=== PATIENT | male | born 1970 | race Caucasian/White ===

== ENCOUNTER 2019-07-17 21:38 | Inpatient (IN) | payer MEDICARE, MEDICAID ==
--- NOTE | 2019-07-17 22:09 | ED ---
Psych HPI - General Chief Complaint: Psychiatric Symptoms Stated Complaint: Mental Health Time Seen by Provider: 07/17/19 21:42 Source: patient Mode of arrival: EMS - History of Present Illness Initial Comments: This patient is a 49-year-old man who presents to be evaluated for having homicidal thoughts and suicidal thoughts. The patient states that he has had some long-standing issues with his mother, but over the past couple of months states he has had thoughts of killing her and then himself afterward. He states he had reached out to EMS and police but they didn't provide any help so he presents here. Patient had history of treatment for schizophrenia many years ago and then was briefly on antidepressant but states that he has not had any medication or treatment for many years now. MD Complaint: suicidal ideation, feels depressed -: month(s) Associated Psychiatric Symptoms: suicidal ideation, homicidal ideation Quality: changing over time Improves With: none Worsens With: none Associated Symptoms: denies other symptoms - Related Data Home Medications Medication Instructions Recorded Confirmed Levothyroxine Sodium [Synthroid] 175 mcg PO DAILY 03/11/16 07/17/19 Acetaminophen with Codeine 1 tab PO Q6H PRN 07/17/19 07/17/19 [Tylenol w/codeine #3] Atorvastatin [Lipitor] 20 mg PO HS 07/17/19 07/17/19 Cholecalciferol [Vitamin D3 (25 5,000 unit PO DAILY 07/17/19 07/17/19 Mcg = 1000 Iu)] Clopidogrel Bisulfate [Plavix] 75 mg PO DAILY 07/17/19 07/17/19 Ferrous Sulfate 220 mg PO BID 07/17/19 07/17/19 Folic Acid 1 mg PO DAILY 07/17/19 07/17/19 INSULIN ASPART (NovoLOG) [NovoLOG 2 - 8 unit SQ AC-TID 07/17/19 07/17/19 (formulary)] INSULIN ASPART (NovoLOG) [NovoLOG See Protocol SQ ACHS 07/17/19 07/17/19 (formulary)] Insulin Glargine [Lantus] 20 unit SQ HS 07/17/19 07/17/19 Allergies Allergy/AdvReac Type Severity Reaction Status Date / Time benztropine [From Cogentin] Allergy Unknown Verified 07/17/19 22:07 No Known Drug Allergies Allergy Unknown Verified 07/17/19 22:07 SODIUM CHANNEL BLOCKERS AdvReac Severe Unknown Uncoded 03/11/16 20:41 Review of Systems ROS Statement: Those systems with pertinent positive or pertinent negative responses have been documented in the HPI. ROS Other: All systems not noted in ROS Statement are negative. Constitutional: Denies: fever, weakness Eyes: Denies: vision change Respiratory: Denies: cough, dyspnea Cardiovascular: Denies: chest pain, syncope Gastrointestinal: Denies: abdominal pain, vomiting, diarrhea Genitourinary: Denies: dysuria, hematuria Musculoskeletal: Denies: back pain Skin: Denies: rash Neurological: Denies: headache Psychiatric: Reports: depression, homicidal thoughts, suicidal thoughts. De nies: auditory hallucinations, visual hallucinations Past Medical History Past Medical History: COPD, Diabetes Mellitus, Thyroid Disorder Additional Past Medical History / Comment(s): fibromyalgia, peripheral neuropathy. schizo parnoid, manic depressive. History of Any Multi-Drug Resistant Organisms: None Reported Past Surgical History: Hernia Repair Past Anesthesia/Blood Transfusion Reactions: No Reported Reaction Past Psychological History: Depression, Schizophrenia Smoking Status: Current every day smoker Past Alcohol Use History: Occasional Past Drug Use History: None Reported - Past Family History Mother Family Medical History: No Reported History (Colitis), Unable to Obtain Father Family Medical History: Diabetes Mellitus Brother(s) Family Medical History: No Reported History (Mental retarded patient) Daughter(s) Family Medical History: No Reported History General Exam Limitations: no limitations General appearance: alert, in no apparent distress Head exam: Present: atraumatic, normocephalic Eye exam: Present: normal appearance. Absent: scleral icterus, conjunctival injection ENT exam: Present: normal oropharynx Neck exam: Present: normal inspection Respiratory exam: Present: normal lung sounds bilaterally. Absent: respiratory distress, wheezes, rales, rhonchi, stridor Cardiovascular Exam: Present: regular rate, normal rhythm, normal heart sounds. Absent: systolic murmur, diastolic murmur, rubs, gallop GI/Abdominal exam: Present: soft. Absent: distended, tenderness, guarding, rebound Back exam: Present: normal inspection Neurological exam: Present: alert, oriented X3 Psychiatric exam: Present: depressed, homicidal ideation, suicidal ideation. Absent: agitated, anxious, flat affect, manic Skin exam: Present: warm, dry, intact, normal color. Absent: rash Course Vital Signs 07/17/19 21:42 Temperature 97.6 F Pulse Rate 82 Respiratory 18 Rate Blood Pressure 117/74 O2 Sat by Pulse 99 Oximetry Medical Decision Making - Lab Data Result diagrams: 07/19/19 07:39 07/21/19 09:05 Lab Results 07/18/19 Range/Units 00:09 Urine Opiates Screen Not Detected (NotDetected) Ur Oxycodone Screen Not Detected (NotDetected) Urine Methadone Screen Not Detected (NotDetected) Ur Propoxyphene Screen Not Detected (NotDetected) Ur Barbiturates Screen Not Detected (NotDetected) U Tricyclic Antidepress Not Detected (NotDetected) Ur Phencyclidine Scrn Not Detected (NotDetected) Ur Amphetamines Screen Not Detected (NotDetected) U Methamphetamines Scrn Not Detected (NotDetected) U Benzodiazepines Scrn Not Detected (NotDetected) Urine Cocaine Screen Not Detected (NotDetected) U Marijuana (THC) Screen Not Detected (NotDetected) Disposition Clinical Impression: Mood disorder Disposition: ADMITTED IP TO THIS [facility] Condition: Fair
[2019-07-18 00:35] LABS: Amphetamine Screen,Urine Not Detected (NotDetected); Barbiturate Screen,Urine Not Detected (NotDetected); Benzodiazepines Screen,Urine Not Detected (NotDetected); Cocaine Screen,Urine Not Detected (NotDetected); Methadone Screen, Urine Not Detected (NotDetected); Opiate Screen,Urine Not Detected (NotDetected); Oxycodone Screen, Urine Not Detected (NotDetected); Phencyclidine Screen,Urine Not Detected (NotDetected); Tricyclic Antidepressant,Urine Not Detected (NotDetected); Urn Cannabinoid Scrn Not Detected (NotDetected)
[2019-07-18] MEDS ORDERED: MAGNESIUM HYDROXIDE 2,400 MG/10 ML CUP PO PRN (03:56)
[2019-07-18] MEDS: LEVOTHYROXINE 50 MCG TAB PO SCH (06:43)
[2019-07-18 07:49] LABS: Glucose,Whole Blood 378 mg/dL (75-99)
[2019-07-18] MEDS ORDERED: FERROUS SULFATE 220 MG PO SCH (09:00)
[2019-07-18] MEDS: NICOTINE 14MG/24HR PATCH TRANSDERM SCH (09:15)
[2019-07-18] MEDS: CHOLECALCIFEROL 1,000 UNIT TAB PO SCH (09:15)
[2019-07-18] MEDS: FOLIC ACID 1 MG TAB PO SCH (09:16)
[2019-07-18] MEDS: INSULIN ASPART (NovoLOG) 100 UNIT/ML VIAL SQ SCH ×5 (09:17→20:52)
[2019-07-18] MEDS: CLOPIDOGREL 75 MG TAB PO SCH (10:05)
[2019-07-18 12:47] LABS: Glucose,Whole Blood 261 mg/dL (75-99)
--- NOTE | 2019-07-18 16:13 | P.HP ---
Psychiatric H&P - . H&P Date: 07/18/19 History & Physical: Allergies Allergy/AdvReac Type Severity Reaction Status Date / Time benztropine From Cogentin Allergy Unknown Verified 07/17/19 22:07 No Known Drug Allergies Allergy Unknown Verified 07/17/19 22:07 SODIUM CHANNEL BLOCKERS AdvReac Severe Unknown Uncoded 03/11/16 20:41 Vital Signs Temp 98.0 F 07/18/19 03:21 Pulse 78 07/18/19 03:21 Resp 18 07/18/19 03:21 BP 102/69 07/18/19 03:21 Pulse Ox 98 07/18/19 03:21 Intake & Output 07/17/19 07/18/19 07/18/19 18:59 06:59 18:59 Weight 81.647 kg Laboratory Last Values POC Glucose (mg/dL) 378 mg/dL (75-99) H 07/18/19 07:47 POC Glu [employer] Program Director ID Corinne Simpson 07/18/19 07:47 Urine Opiates Screen Not Detected (NotDetected) 07/18/19 00:09 Ur Oxycodone Screen Not Detected (NotDetected) 07/18/19 00:09 Urine Methadone Screen Not Detected (NotDetected) 07/18/19 00:09 Ur Propoxyphene Screen Not Detected (NotDetected) 07/18/19 00:09 Ur Barbiturates Screen Not Detected (NotDetected) 07/18/19 00:09 U Tricyclic Antidepress Not Detected (NotDetected) 07/18/19 00:09 Ur Phencyclidine Scrn Not Detected (NotDetected) 07/18/19 00:09 Ur Amphetamines Screen Not Detected (NotDetected) 07/18/19 00:09 U Methamphetamines Scrn Not Detected (NotDetected) 07/18/19 00:09 U Benzodiazepines Scrn Not Detected (NotDetected) 07/18/19 00:09 Urine Cocaine Screen Not Detected (NotDetected) 07/18/19 00:09 U Marijuana (THC) Screen Not Detected (NotDetected) 07/18/19 00:09 07/18/19 12:44 IDENTIFYING DATA: Patient is a 49-year-old male with a history of depression who currently lives with his dad brother and mother in a house is and has 1 daughter and collects SSD. HPI: Patient presented to the hospital via EMS after posting on Facebook different messages about wanting to end his life, stating that it was a "cry for help. Patient was endorsing depression with homicidal and suicidal ideations in the ER and was admitted to the mental health unit for treatment. Patient claims that he has been having long-standing problems with his mother and states that they do not get along. He claims that he has been feeling homicidal towards his mother for approximately 2 months now. He claims that he had thoughts of jumping out of his chair and strangling her. Patient claims that he has been off medications for years and endorses feeling "edgy" lately and it's mainly related to feelings towards his mother. He claims that his mother has "control issues" and has been taking things out on him which are not his fault. Patient was guarded about most of the details about their arguments however did state that he has no outlet for someone to talk to. He claimed that he did call 911 for help however he states that he did not receive any. She endorsed being in a "swingy mood" and admitted to anxiety and poor sleep and concentration. Patient admitted to having suicidal thoughts however are passive with no plan and admits to having still homicidal thoughts towards his mother wanting to strangle her. At this time patient denies any auditory or visual hallucinations. Patient denies any flight of ideas racing thoughts and increased in goal directed behavior. Patient admits to using cigarettes approximately 1.5 packs per day. He denies using any drugs currently and states that he quit using heroin and cocaine and cannabis over a year ago. He denies using alcohol. PAST PSYCHIATRIC HISTORY: Patient states that he has a history of depression and stopped seeing [facility] when he was 18 years old as he claims that he was dropped from their services. Patient also admitted to previously being hospitalized at the on the mental health unit in 1993. Patient admitted to an overdose attempt in 1993 PMH: COPD, diabetes mellitus, thyroid disease, fibromyalgia ALLERGIES: as per EMR CHEMICAL DEPENDENCY HISTORY: as per HPI FAMILY PSYCHIATRIC/SUBSTANCE USE HISTORY: States that his mother had some form of mental illness, his uncle has schizophrenia. SOCIAL HISTORY: States that he was born and raised in [place] [facility] and completed high school. He states that he has one daughter is currently and lives in a house with his father mother and brother. Patient admitted to being in group home once in the past for destruction of private property. MENTAL STATUS EXAM: General Appearance: Patient appears to be older than stated age is alert, directable, and guarded. Poor hygiene and poor grooming. Fair eye contact. Behavior: Patient is calmly seated without any agitated behavior. Patient is seated in a wheelchair. Speech: Patient's speech is fluent and nonpressured. Soft tone Mood/Affect: Patient reports their mood is "swingy mood", affect is congruent and constricted. Suicidality/Homicidality: Admits to homicidal and suicidal ideations as per HPI. Perceptions: Patient denies any auditory or visual hallucinations. Though content/process: There is no evidence of any delusional thought content and thought process is tangential/circumstantial. Memory and concentration: AOX3, grossly intact for the purposes of this session. Can spell "WORLD" backwards Judgment and insight: poor/impulsive. STRENGTHS/WEAKNESSES: strength is that patient is resilient, weaknesses the patient has poor insight and judgment. INTELLECT: average IMPRESSIONS: Depressive disorder unspecified, rule out bipolar depression Anxiety disorder Nicotine dependence PLAN: -Patient is admitted under voluntary status to MHU for stabilization of p sychiatric symptoms and safety. Patient signed adult voluntary form and medication consent and is placed in patient's chart. -Medications : Will start patient on Lamictal 25 mg twice a day for mood st abilization/depression, we'll start trazodone 50 mg daily at bedtime for insomnia/mood. Will start patient on Vistaril 25 mg every 6 hours when necessary for anxiety. -Ativan PRN for agitation/aggression -Patient was informed of the risks, benefits and side effects of the medication and patient verbally consented to taking the medications. Patient signed med consent form and was placed in chart. -NRT - nicotine patch -SW on board for discharge planning. Social work to reach out to mother for duty to warn prior to patient being discharged. 07/18/19 16:00 07/18/19 16:11
[2019-07-18] MEDS ORDERED: INSULIN ASPART (NovoLOG) 100 UNIT/ML VIAL SQ SCH ×2 (17:30)
[2019-07-18 17:50] LABS: Glucose,Whole Blood 293 mg/dL (75-99)
[2019-07-18 20:10] LABS: Glucose,Whole Blood 398 mg/dL (75-99)
[2019-07-18] MEDS ORDERED: traZODone HCL 50 MG TAB PO SCH (21:00)
[2019-07-18] MEDS ORDERED: INSULIN DETEMIR (LEVEMIR) 100 UNIT/ML SYR SQ SCH (21:00)
[2019-07-18] MEDS: lamoTRIgine 25 MG TAB PO SCH (21:21)
[2019-07-18] MEDS: ATORVASTATIN 20 MG TAB PO SCH (21:21)
[2019-07-18] MEDS: MAG HYDROX/AL HYDROX/SIMETH 30 ML CUP PO PRN (21:22)
--- NOTE | 2019-07-18 22:07 | CONS ---
CONSULTATION DATE OF SERVICE: 07/18/2019 REASON FOR CONSULTATION: Advice regarding diabetes mellitus and other multiple medical issues, requested by Psychiatry. HISTORY OF PRESENT ILLNESS: This 49-year-old gentleman with a past medical history of multiple medical problems, including COPD, diabetes mellitus, type 2, history hypothyroidism, fibromyalgia, peripheral neuropathy, schizoaffective paranoid disorder, manic depressive disorder, being followed by Dr. Interiano in the outpatient setting, apparently was evaluated in [facility] recently. The official reports are not available, but as per the patient, the patient apparently had a cardiac cath that showed 3-vessel coronary artery disease and the patient is awaiting CABG, but the hemoglobin A1c has to be less than 6.5, according to the doctors over there prior to surgery. Currently the patient presented with suicidal, homicidal ideations. His blood sugar was found to be more than 380 and the patient was admitted for further evaluation and treatment. An element of noncompliance is also suspected at this time. There is no history of any fever, rigor or chills. No history of headache, loss of consciousness, seizures. PAST MEDICAL HISTORY: 1. COPD. 2. Diabetes mellitus. 3. History of recent cardiac workup. 4. Fibromyalgia. 5. Depression. HOME MEDICATIONS: 1. NovoLog before meals and at bedtime. 2. Lantus 20 units subcutaneously at bedtime. 3. Lipitor 20 mg at bedtime. 4. Tylenol No.3. 5. Folic acid 1 mg p.o. daily. 6. Plavix 75 mg p.o. daily. 7. Vitamin D3 5000 daily. 8. Synthroid 175 mcg p.o. daily. 9. Iron sulfate 220 mcg p.o. daily. ALLERGIES: COGENTIN and SODIUM CHANNEL BLOCKERS. FAMILY HISTORY: Unknown. SOCIAL HISTORY: History of smoking. History of alcohol. REVIEW OF SYSTEMS: ENT: Diminished hearing. Diminished vision. CARDIOVASCULAR SYSTEM: As mentioned earlier. RESPIRATORY SYSTEM: No cough, hemoptysis. GI: No nausea, vomiting. : No dysuria or retention. NERVOUS SYSTEM: No numbness, weakness. ALLERGY/IMMUNOLOGY: No asthma, hayfever. MUSCULOSKELETAL: As mentioned earlier. HEMATOLOGY/ONCOLOGY: No history of anemia. ENDOCRINE: As mentioned earlier. Hypothyroidism. CONSTITUTIONAL: As mentioned earlier. DERMATOLOGY: Negative. RHEUMATOLOGY: Negative. PSYCHIATRY: As mentioned earlier. PHYSICAL EXAMINATION: Patient alert and oriented x3. Pulse 78, blood pressure 102/69, respiration 18, temperature 98 degrees, pulse ox 98% on room air. HEENT: Conjunctivae normal. Oral mucosa moist. NECK: No jugular venous distention. No carotid bruit. No lymph node enlargement. CARDIOVASCULAR SYSTEM: S1, S2 muffled. No S3. No S4. RESPIRATORY SYSTEM: Breath sounds diminished at the bases. No rhonchi. No crackles. ABDOMEN: Soft, non-tender. No mass palpable. LEGS: No edema. No swelling. NERVOUS SYSTEM: Higher functions as mentioned earlier. Moves all 4 limbs. No focal motor or sensory deficit. LYMPHATICS: No lymph node palpable in neck, axillae or groin. SKIN: No ulcer, rash, bleeding. JOINTS: No active deforming arthropathy. LABS: Labs at this time show glucose 378, 261. ASSESSMENT: 1. Diabetes mellitus, type 2, uncontrolled, with hyperglycemia. 2. History of recent coronary artery disease. Patient being worked up for CABG. 3. Chronic obstructive pulmonary disease. 4. Diabetes mellitus, type 2. 5. Hypothyroidism. 6. Fibromyalgia. 7. Peripheral neuropathy. 8. Schizoaffective disorder. 9. History of MDP. 10.History of nicotine dependence, continued and ongoing. 11.FULL CODE. RECOMMENDATIONS AND DISCUSSION: In this 49-year-old gentleman who presented with multiple complex medical issues, we will monitor the patient closely, continue the current medications, continue with symptomatic treatment. I recommend obtaining the paperwork from Dr. Interiano's office as well as from [place] regarding the acuity of the cardiac disease. But in any case the patient is currently asymptomatic. I recommend to continue the rest of the medications, including antiplatelets. I would also resume the dose of Lantus and 2 to 8 units before meals t.i.d. plus coverage as well. Otherwise, we will closely monitor. Smoking cessation has been advised. The patient may be asked to follow up with his primary physician closely after discharge. Thank you, Dr. Camp, for letting us participate in the care of this patient. MMODL / IJN: [id number] /
[2019-07-19 01:59] LABS: Glucose,Whole Blood 211 mg/dL (75-99)
[2019-07-19] MEDS: MAG HYDROX/AL HYDROX/SIMETH 30 ML CUP PO PRN (02:25)
[2019-07-19 08:06] LABS: Glucose,Whole Blood 200 mg/dL (75-99)
[2019-07-19] MEDS: INSULIN ASPART (NovoLOG) 100 UNIT/ML VIAL SQ SCH ×7 (08:12→20:47)
[2019-07-19 08:13] LABS: Basophils % (A) 0 %; Eosinophils # (A) 0.4 k/uL (0-0.7); Eosinophils % (A) 4 %; HCT 34.7 % (39.0-53.0); HGB 11.4 gm/dL (13.0-17.5); Lymphocytes % (A) 24 %; MCH 30.2 pg (25.0-35.0); MCHC 32.8 g/dL (31.0-37.0); MCV 92.1 fL (80.0-100.0); Mean Platelet Volume 7.4; Monocytes # (A) 0.6 k/uL (0-1.0); Monocytes % (A) 7 %; Neutrophils # (A) 5.1 k/uL (1.3-7.7); Neutrophils % (A) 62 %; Platelet Count 144 k/uL (150-450); RBC 3.77 m/uL (4.30-5.90); RDW 14.3 % (11.5-15.5); WBC 8.3 k/uL (3.8-10.6)
[2019-07-19 08:14] LABS: Bilirubin, Delta 0.1 mg/dL (0.0-0.2); Bilirubin,Unconjugated 0.3 mg/dL (0.0-1.1); Calcium 9.6 mg/dL (8.4-10.2); Potassium 5.7 mmol/L (3.5-5.1); Total Bilirubin 0.4 mg/dL (0.2-1.3)
[2019-07-19] MEDS: LEVOTHYROXINE 50 MCG TAB PO SCH (08:15)
[2019-07-19] MEDS: NICOTINE 14MG/24HR PATCH TRANSDERM SCH (09:16)
[2019-07-19] MEDS: CHOLECALCIFEROL 1,000 UNIT TAB PO SCH (09:16)
[2019-07-19] MEDS: FOLIC ACID 1 MG TAB PO SCH (09:16)
[2019-07-19] MEDS: CLOPIDOGREL 75 MG TAB PO SCH (09:17)
[2019-07-19] MEDS: lamoTRIgine 25 MG TAB PO SCH ×2 (09:17→20:50)
[2019-07-19] MEDS: ACETAMINOPHEN TAB 325 MG TAB PO PRN (09:18)
--- NOTE | 2019-07-19 09:47 | P.PN ---
Progress Note - Text Progress Note Date: 07/19/19 Interval History: Patient was seen in his wheelchair wandering the hallways and was directable and agreeable to be interviewed in the office. Patient continues to have a soft- spoken voice however is clear and appear to speak more about his stressors at home. Patient also spoke about having financial stressors which have been preventing him from moving out of the house. Patient spoke about wanting to be in his own apartment and have his freedom. Patient states that his mood has improved mildly and feels less "edgy" compared to yesterday. Patient states that he is making some new friends on the unit which have been helping him push his wheelchair around. He states that he slapped for approximately 3-4 hours last night and has been awake since 3 AM and was requesting an increase in his trazodone. He admits to fair energy and has been attempting to go to groups. At this time patient continues to have passive suicidal ideations along with passive homicidal ideations towards his mother. Patient denies any auditory, visual hallucinations and denies any paranoia or delusions. Patient denies any side effects from the medications and has been compliant with meds. Mental Status Exam: General Appearance: Patient appears to be older than stated age is alert, directable, and attempts to cooperate. Poor hygiene and poor grooming. Fair eye contact. Behavior: Patient is calmly seated without any agitated behavior. Patient is seated in a wheelchair. Speech: Patient's speech is fluent and nonpressured. Soft tone Mood/Affect: Patient reports their mood is improving mildly, affect is congruent and constricted. Suicidality/Homicidality: Admits to homicidal and suicidal ideations with no plan or intent. Perceptions: Patient denies any auditory or visual hallucinations. Though content/process: There is no evidence of any delusional thought content and thought process is tangential/circumstantial. Memory and concentration: AOX3, grossly intact for the purposes of this session. Judgment and insight: poor, improving mildly Assessment Depressive disorder unspecified, rule out bipolar depression Anxiety disorder Nicotine dependence Plan: -Patient continues to meet criteria for inpatient psychiatric admission for symptom stabilization and safety. Patient has signed adult voluntary form and medication consent and was placed in patient's chart. -Medications: We'll continue with Lamictal 25 mg twice a day for mood stabilization/depression. We'll increase trazodone to 100 mg nightly for insomnia/mood. Continue with Vistaril 25 mg every 6 hours when necessary for anxiety. -When necessary Ativan for agitation/aggression. -NRT - nicotine patch -SW on board for discharge planning. Social work to reach out to mother for duty to warn prior to patient being discharged.
[2019-07-19 12:43] LABS: Glucose,Whole Blood 198 mg/dL (75-99)
[2019-07-19] MEDS ORDERED: SODIUM CHLORIDE 0.9% 1,000 ML IV ONE (15:24)
[2019-07-19] MEDS ORDERED: SODIUM POLYSTYRENE SULFONATE 15 GM/60 ML BOTTLE PO STA (15:26)
[2019-07-19] MEDS ORDERED: SODIUM CHLORIDE 0.9% 1,000 ML IV SCH (15:30)
--- NOTE | 2019-07-19 15:30 | P.PN ---
Subjective 49-year-old that was admitted to psychiatric floor, as asked to reevaluate the patient today because of lab abnormalities including elevated potassium elevated serum creatinine and this elevated BNP. Patient denied any diarrhea nausea vomiting I reviewed his medications none of them can cause a will cause acute renal failure and hyperkalemia. Patient will be given a bolus of IV fluid today after that we'll the use 100 mL of normal saline and repeat basic metabolic profile tomorrow. I'm expecting potassium to come down with IV fluids patient will also be given capsulate for hyperkalemia. Constitutional: Denied any fatigue denied any fever. Cardio vascular: denied any chest pain, palpitations Gastrointestinal denied any nausea vomiting Pulmonary: Denied any shortness of breath cough Neurologic denied any new focal deficits All inpatient medications were reviewed and appropriate changes in these medications as dictated in the interval history and assessment and plan. Objective - Vital Signs Vital signs: Vital Signs Temp 98.0 F 07/18/19 03:21 Pulse 70 07/19/19 07:08 Resp 14 07/19/19 07:08 BP 128/73 07/19/19 07:08 Pulse Ox 98 07/18/19 03:21 - Exam PHYSICAL EXAMINATION: GENERAL: The patient is alert and oriented x3, not in any acute distress. Well developed, well nourished. HEENT: Pupils are round and equally reacting to light. EOMI. No scleral icterus. No conjunctival pallor. Normocephalic, atraumatic. No pharyngeal erythema. No thyromegaly. CARDIOVASCULAR: S1 and S2 present. No murmurs, rubs, or gallops. PULMONARY: Chest is clear to auscultation, no wheezing or crackles. ABDOMEN: Soft, nontender, nondistended, normoactive bowel sounds. No palpable organomegaly. MUSCULOSKELETAL: No joint swelling or deformity. EXTREMITIES: No cyanosis, clubbing, or pedal edema. NEUROLOGICAL: Gross neurological examination did not reveal any focal deficits. SKIN: No rashes. - Labs CBC & Chem 7: 07/19/19 07:39 07/19/19 07:39 Labs: Abnormal Lab Results - Last 24 Hours (Table) 07/18/19 07/18/19 07/19/19 Range/Units 17:48 20:06 01:55 RBC (4.30-5.90) m/uL Hgb (13.0-17.5) gm/dL Hct (39.0-53.0) % Plt Count (150-450) k/uL Potassium (3.5-5.1) mmol/L BUN (9-20) mg/dL Creatinine (0.66-1.25) mg/dL Glucose (74-99) mg/dL POC Glucose (mg/dL) 293 H 398 H 211 H (75-99) mg/dL Alkaline Phosphatase (38-126) U/L HDL Cholesterol (40-60) mg/dL 07/19/19 07/19/19 07/19/19 Range/Units 07:39 07:39 08:04 RBC 3.77 L (4.30-5.90) m/uL Hgb 11.4 L (13.0-17.5) gm/dL Hct 34.7 L (39.0-53.0) % Plt Count 144 L (150-450) k/uL Potassium 5.7 H (3.5-5.1) mmol/L BUN 52 H (9-20) mg/dL Creatinine 1.40 H (0.66-1.25) mg/dL Glucose 172 H (74-99) mg/dL POC Glucose (mg/dL) 200 H (75-99) mg/dL Alkaline Phosphatase 155 H (38-126) U/L HDL Cholesterol 31 L (40-60) mg/dL 07/19/19 Range/Units 12:42 RBC (4.30-5.90) m/uL Hgb (13.0-17.5) gm/dL Hct (39.0-53.0) % Plt Count (150-450) k/uL Potassium (3.5-5.1) mmol/L BUN (9-20) mg/dL Creatinine (0.66-1.25) mg/dL Glucose (74-99) mg/dL POC Glucose (mg/dL) 198 H (75-99) mg/dL Alkaline Phosphatase (38-126) U/L HDL Cholesterol (40-60) mg/dL Assessment and Plan Plan: -Hyperkalemia secondary to acute renal failure which is again secondary to prerenal azotemia patient was started on IV fluids and capsulate as mentioned above. Patient doesn't have any history of congestive heart failure supposed to undergo coronary artery bypass grafting as an outpatient -Acute renal failure. His demand, depletion secondary to prove that oral intake -Type 2 diabetes mellitus fairly well controlled blood sugars For rest of the medical problems please refer to dictation of consultation from Dr. Hale yesterday
[2019-07-19 17:38] LABS: Hemoglobin A1C 8.9 % (4.0-6.0)
[2019-07-19 18:03] LABS: Glucose,Whole Blood 186 mg/dL (75-99)
[2019-07-19 18:03] LABS: Glucose,Whole Blood 252 mg/dL (75-99)
[2019-07-19 20:34] LABS: Glucose,Whole Blood 264 mg/dL (75-99)
[2019-07-19] MEDS: INSULIN DETEMIR (LEVEMIR) 100 UNIT/ML SYR SQ SCH (20:50)
[2019-07-19] MEDS: ATORVASTATIN 20 MG TAB PO SCH (20:50)
[2019-07-19] MEDS: traZODone HCL 100 MG TAB PO SCH (20:51)
[2019-07-20 02:21] LABS: Glucose,Whole Blood 124 mg/dL (75-99)
[2019-07-20 05:03] LABS: Glucose,Whole Blood 106 mg/dL (75-99)
[2019-07-20] MEDS: LEVOTHYROXINE 50 MCG TAB PO SCH (05:50)
[2019-07-20] MEDS ORDERED: SODIUM CHLORIDE 0.9% 1,000 ML IV ONE (06:00)
[2019-07-20 07:59] LABS: Glucose,Whole Blood 147 mg/dL (75-99)
[2019-07-20] MEDS: CHOLECALCIFEROL 1,000 UNIT TAB PO SCH (08:43)
[2019-07-20] MEDS: NICOTINE 14MG/24HR PATCH TRANSDERM SCH (08:43)
[2019-07-20] MEDS: FOLIC ACID 1 MG TAB PO SCH (08:44)
[2019-07-20] MEDS: lamoTRIgine 25 MG TAB PO SCH ×2 (08:44→20:49)
[2019-07-20] MEDS: INSULIN ASPART (NovoLOG) 100 UNIT/ML VIAL SQ SCH ×7 (08:47→20:40)
[2019-07-20] MEDS: CLOPIDOGREL 75 MG TAB PO SCH (09:26)
[2019-07-20 09:56] LABS: Potassium 4.7 mmol/L (3.5-5.1)
--- NOTE | 2019-07-20 10:25 | P.PN ---
Progress Note - Text Progress Note Date: 07/20/19 Interval History: Patient was seen in his wheelchair wandering the hallways and was directable and agreeable to be interviewed in the office. Patient states that he is starting to form more bonds with other patients on the unit and claims that one of his favorite patients who he likes to talk to we'll probably get discharged today which she is upset about. Patient spoke about continuing to try to participate in groups and gained benefit from being here in the hospital. Patient continues to speak about the stressors between him and his mother and how he still has homicidal ideations towards her however are improving. Patient states that his mood is improving mildly and feels less irritable. Patient claims that his sleep has been mildly improving on the increase in trazodone however claims that he was woken up by staff last night and found it difficult to go back to sleep. He admits to fair energy and has been attempting to go to groups. Patient denies any auditory, visual hallucinations and denies any paranoia or delusions. Patient denies any side effects from the medications and has been compliant with meds. Patient denies any rash on his skin and claims that he's been checking his skin daily for it. Mental Status Exam: General Appearance: Patient appears to be older than stated age is alert, directable, and attempts to cooperate. Improving hygiene and poor grooming. Fair eye contact. Behavior: Patient is calmly seated without any agitated behavior. Patient is seated in a wheelchair. Speech: Patient's speech is fluent and nonpressured. Soft tone Mood/Affect: Patient reports their mood is improving mildly, affect is congruent and constricted. Suicidality/Homicidality: Admits to homicidal ideations with no plan or intent towards his mother. Perceptions: Patient denies any auditory or visual hallucinations. Though content/process: There is no evidence of any delusional thought content and thought process is tangential/circumstantial. Memory and concentration: AOX3, grossly intact for the purposes of this session. Judgment and insight: poor, improving mildly Assessment Depressive disorder unspecified, rule out bipolar depression Anxiety disorder Nicotine dependence Plan: -Patient continues to meet criteria for inpatient psychiatric admission for symptom stabilization and safety. Patient has signed adult voluntary form and medication consent and was placed in patient's chart. -Medications: Increased Lamictal 50 mg twice a day for mood sta bilization/depression. We'll continue with trazodone to 100 mg nightly for insomnia/mood. Continue with Vistaril 25 mg every 6 hours when necessary for anxiety. -When necessary Ativan for agitation/aggression. -NRT - nicotine patch -SW on board for discharge planning. Social work to reach out to mother for duty to warn prior to patient being discharged.
[2019-07-20 12:41] LABS: Glucose,Whole Blood 175 mg/dL (75-99)
[2019-07-20 17:51] LABS: Glucose,Whole Blood 91 mg/dL (75-99)
[2019-07-20 20:14] LABS: Glucose,Whole Blood 157 mg/dL (75-99)
[2019-07-20] MEDS: INSULIN DETEMIR (LEVEMIR) 100 UNIT/ML SYR SQ SCH (20:39)
[2019-07-20] MEDS: ACETAMINOPHEN TAB 325 MG TAB PO PRN (20:47)
[2019-07-20] MEDS: hydrOXYzine PAMOATE 25 MG CAP PO PRN (20:47)
[2019-07-20] MEDS: traZODone HCL 100 MG TAB PO SCH (20:49)
[2019-07-20] MEDS: ATORVASTATIN 20 MG TAB PO SCH (20:49)
[2019-07-20 22:03] LABS: Glucose,Whole Blood 132 mg/dL (75-99)
[2019-07-21] MEDS: LEVOTHYROXINE 50 MCG TAB PO SCH (06:57)
[2019-07-21 07:54] LABS: Glucose,Whole Blood 50 mg/dL (75-99)
[2019-07-21 08:29] LABS: Glucose,Whole Blood 50 mg/dL (75-99)
[2019-07-21 08:49] LABS: Glucose,Whole Blood 47 mg/dL (75-99)
[2019-07-21] MEDS ORDERED: DEXTROSE 4 GM CHEWABLE PO STA (09:07)
[2019-07-21 09:10] LABS: Glucose,Whole Blood 86 mg/dL (75-99)
[2019-07-21] MEDS: NICOTINE 14MG/24HR PATCH TRANSDERM SCH (09:39)
[2019-07-21] MEDS: CHOLECALCIFEROL 1,000 UNIT TAB PO SCH (09:39)
[2019-07-21] MEDS: CLOPIDOGREL 75 MG TAB PO SCH (09:40)
[2019-07-21] MEDS: lamoTRIgine 25 MG TAB PO SCH ×2 (09:40→21:38)
[2019-07-21] MEDS: FOLIC ACID 1 MG TAB PO SCH (09:40)
[2019-07-21] MEDS: INSULIN ASPART (NovoLOG) 100 UNIT/ML VIAL SQ SCH ×7 (09:42→20:03)
--- NOTE | 2019-07-21 11:21 | P.PN ---
Progress Note - Text Progress Note Date: 07/21/19 Interval History: Patient was seen in his wheelchair wandering the hallways and was directable and agreeable to be interviewed in the office. Patient states that he is not doing so well today as he claims that he's been trying to stick up for other patients on the unit at her being "bullied" by others and states that she's always tried to stand up to people. Patient spoke about how he would like to get his own room or apartment when he leaves the hospital and states that he does not want t o go back to his mother's house. Patient spoke about continuing to try to participate in groups and gained benefit from it. Patient continues to speak about the stressors between him and his mother and how he still has homicidal ideations towards her. Patient states that his mood is improving mildly and feels less irritable. Patient claims that his sleep has been improving however requests an increase in his trazodone once again. He admits to fair energy. Patient denies any auditory, visual hallucinations and denies any paranoia or delusions. Patient denies any side effects from the medications and has been compliant with meds. Patient denies any rash on his skin and claims that he's been checking his skin daily for it. Mental Status Exam: General Appearance: Patient appears to be older than stated age is alert, directable, and attempts to cooperate. Improving hygiene and poor grooming. Fair eye contact. Behavior: Patient is calmly seated without any agitated behavior. Patient is seated in a wheelchair. Speech: Patient's speech is fluent and nonpressured. Soft tone Mood/Affect: Patient reports their mood is improving mildly, affect is congruent and constricted. Suicidality/Homicidality: Admits to homicidal ideations with no plan or intent towards his mother. Denies any suicidal ideations. Perceptions: Patient denies any auditory or visual hallucinations. Though content/process: There is no evidence of any delusional thought content and thought process is tangential/circumstantial. Memory and concentration: AOX3, grossly intact for the purposes of this session. Judgment and insight: poor, improving mildly Assessment Depressive disorder unspecified, rule out bipolar depression Anxiety disorder Nicotine dependence Plan: -Patient continues to meet criteria for inpatient psychiatric admission for symptom stabilization and safety. Patient has signed adult voluntary form and medication consent and was placed in patient's chart. -Medications: Continue with Lamictal 50 mg twice a day for mood stabilization/depression. We'll increase trazodone 150 mg nightly for insomnia/mood. Continue with Vistaril 25 mg every 6 hours when necessary for anxiety. -When necessary Ativan for agitation/aggression. -NRT - nicotine patch -SW on board for discharge planning. Social work to reach out to mother for duty to warn prior to patient being discharged. Patient likely discharge in 2-3 days.
[2019-07-21 12:56] LABS: Glucose,Whole Blood 175 mg/dL (75-99)
[2019-07-21] MEDS: MAG HYDROX/AL HYDROX/SIMETH 30 ML CUP PO PRN (16:17)
[2019-07-21 17:27] LABS: Glucose,Whole Blood 213 mg/dL (75-99)
[2019-07-21 19:58] LABS: Glucose,Whole Blood 127 mg/dL (75-99)
[2019-07-21] MEDS: INSULIN DETEMIR (LEVEMIR) 100 UNIT/ML SYR SQ SCH (21:37)
[2019-07-21] MEDS: ATORVASTATIN 20 MG TAB PO SCH (21:39)
[2019-07-21] MEDS: traZODone HCL 50 MG TAB PO SCH (21:39)
[2019-07-22] MEDS: LEVOTHYROXINE 50 MCG TAB PO SCH (05:58)
[2019-07-22] MEDS: NICOTINE 14MG/24HR PATCH TRANSDERM SCH (07:40)
[2019-07-22] MEDS: FOLIC ACID 1 MG TAB PO SCH (07:41)
[2019-07-22] MEDS: CHOLECALCIFEROL 1,000 UNIT TAB PO SCH (07:41)
[2019-07-22] MEDS: lamoTRIgine 25 MG TAB PO SCH (07:41)
[2019-07-22] MEDS: CLOPIDOGREL 75 MG TAB PO SCH (07:41)
[2019-07-22 07:44] LABS: Glucose,Whole Blood 150 mg/dL (75-99)
[2019-07-22] MEDS: INSULIN ASPART (NovoLOG) 100 UNIT/ML VIAL SQ SCH ×7 (07:46→20:54)
[2019-07-22 12:41] LABS: Glucose,Whole Blood 148 mg/dL (75-99)
--- NOTE | 2019-07-22 12:41 | P.PN ---
Progress Note - Text Progress Note Date: 07/22/19 Interval History: Patient was seen in his wheelchair wandering the hallways and was directable and agreeable to be interviewed in the office. Patient continues to speak about another female on the unit who he is trying to stick up for an claims that he filed a complaint with the staff. Patient offered no other complaints and appeared to be more future oriented about his disposition. Patient stated that it started option for him to go back to his home and he is still having homicidal thoughts towards his mother. Patient claims that she would like to have a electric wheelchair to help him get around the town as he would like to stay in [place]. Patient spoke about continuing to try to participate in groups and gained benefit from it. He states that he is still feeling somewhat depressed and somewhat irritable and was requesting to have his Lamictal increased. Patient claims that his sleep has been improving. He admits to fair energy. Patient denies any auditory, visual hallucinations and denies any paranoia or delusions. Patient denies any side effects from the medications and has been compliant with meds. Patient denies any rash on his skin and claims that he's been checking his skin daily for it. Mental Status Exam: General Appearance: Patient appears to be older than stated age is alert, directable, and attempts to cooperate. Improving hygiene and poor grooming. Fair eye contact. Behavior: Patient is calmly seated without any agitated behavior. Patient is seated in a wheelchair. Speech: Patient's speech is fluent and nonpressured. Soft tone Mood/Affect: Patient reports their mood is improving mildly, affect is congruent and constricted. Suicidality/Homicidality: Admits to homicidal ideations with no plan or intent towards his mother. Denies any suicidal ideations. Perceptions: Patient denies any auditory or visual hallucinations. Though content/process: There is no evidence of any delusional thought content and thought process is tangential/circumstantial. Memory and concentration: AOX3, grossly intact for the purposes of this session. Judgment and insight: poor, improving mildly Assessment Depressive disorder unspecified, rule out bipolar depression Anxiety disorder Nicotine dependence Plan: -Patient continues to meet criteria for inpatient psychiatric admission for symptom stabilization and safety. Patient has signed adult voluntary form and medication consent and was placed in patient's chart. -Medications: Increased Lamictal 50 mg + 100mg daily for mood stabilization/depression. We'll continue with trazodone 150 mg nightly for insomnia/mood. Continue with Vistaril 25 mg every 6 hours when necessary for anxiety. -When necessary Ativan for agitation/aggression. -NRT - nicotine patch -SW on board for discharge planning. Social work to reach out to mother for duty to warn prior to patient being discharged. Patient likely discharge early next week. Patient will either be going to a room and board versus senior living.
[2019-07-22 17:35] LABS: Glucose,Whole Blood 163 mg/dL (75-99)
[2019-07-22] MEDS: traZODone HCL 50 MG TAB PO SCH (20:49)
[2019-07-22] MEDS: ATORVASTATIN 20 MG TAB PO SCH (20:49)
[2019-07-22] MEDS: INSULIN DETEMIR (LEVEMIR) 100 UNIT/ML SYR SQ SCH (20:50)
[2019-07-22] MEDS: lamoTRIgine 100 MG TAB PO SCH (20:50)
[2019-07-22 20:52] LABS: Glucose,Whole Blood 363 mg/dL (75-99)
[2019-07-23] MEDS: LEVOTHYROXINE 50 MCG TAB PO SCH (06:15)
[2019-07-23 07:36] LABS: Glucose,Whole Blood 153 mg/dL (75-99)
[2019-07-23] MEDS: NICOTINE 14MG/24HR PATCH TRANSDERM SCH (07:58)
[2019-07-23] MEDS: CLOPIDOGREL 75 MG TAB PO SCH (07:59)
[2019-07-23] MEDS: INSULIN ASPART (NovoLOG) 100 UNIT/ML VIAL SQ SCH ×7 (07:59→20:09)
[2019-07-23] MEDS: CHOLECALCIFEROL 1,000 UNIT TAB PO SCH (07:59)
[2019-07-23] MEDS: FOLIC ACID 1 MG TAB PO SCH (07:59)
[2019-07-23] MEDS: lamoTRIgine 25 MG TAB PO SCH (08:00)
[2019-07-23 12:33] LABS: Glucose,Whole Blood 261 mg/dL (75-99)
[2019-07-23 17:42] LABS: Glucose,Whole Blood 130 mg/dL (75-99)
--- NOTE | 2019-07-23 18:06 | P.PN ---
Progress Note - Text Progress Note Date: 07/23/19 IDENTIFICATION DATA: 49-year-old male admitted voluntarily to [facility] due with symptoms of depression and suicidal ideations INTERVAL HISTORY: He says his medications are keeping him mellowed. He reports being upset earlier about his peers getting into his face and not being able get shower when he asked. He stated he did not g to his groups today due to being upset and sat in his room to think it out. He reports feeling lot better after he took his shower. He reports waking up feeling tired and says his sleep is interrupted which has been like that for a long time. He reports taking all his medications. No side effects reported. MENTAL STATUS EXAMINATION: 49 year old male. AMBULATES IN WHEEL CHAIR. Appears stated age in fair grooming and hygiene. speech and thought process are slow and goal directed. mood is reported as better and affect constricted. denies current auditory hallucinations and visual hallucinations. Denies paranoid ideations. Denies current suicidal or homicidal ideations. She is alert and oriented x 4. Her insight and judgement are improving. Assessment Depressive disorder unspecified, rule out bipolar depression Anxiety disorder Nicotine dependence PLAN: Continue Lamictal 50 mg + 100mg daily for mood stabilization/depression. Will increase trazodone from 150 mg nightly to 200mg po qhs for insomnia Vistaril 25 mg every 6 hours when necessary for anxiety.
--- NOTE | 2019-07-23 18:39 | P.PN ---
Progress Note - Text Progress Note Date: 07/23/19 IDENTIFICATION DATA: 36 -year-old male admitted to [facility] voluntarily with symptoms of depression and suicidal ideations INTERVAL HISTORY: He reports feeling kind of low today stating his family is disappointed at him for what he had done prior to his admission. He stated he did not eat his dinner stating his stomach is upset. He reports good sleep but states he sweats a lot at night. He reports taking all his medications as prescribed and denies side effects. He claims his blood pressures are running low. MENTAL STATUS EXAMINATION: 36 year old male.. Appears stated age in fair grooming and hygiene. speech and thought process are goal directed. mood is sad and affect constricted. denies current auditory hallucinations and visual hallucinations. Denies paranoid ideations. Reports current suicidal with no plan. Denies homicidal ideations. She is alert and oriented x 4. Her insight and judgement are improving. Assessment Major depressive disorder, moderate-severe, recurrent Anxiety disorder unspecified Opiate use disorder, currently on replacement therapy Alcohol abuse PLAN: Continue Lexapro 20 mg nightly for mood/anxiety. Klonopin 0.5 mg twice a day when necessary for anxiety. Melatonin 5 mg nightly for sleep. Suboxone 8 mg/2 mg twice a day for opiate use disorder
[2019-07-23 20:04] LABS: Glucose,Whole Blood 206 mg/dL (75-99)
[2019-07-23] MEDS: lamoTRIgine 100 MG TAB PO SCH (20:43)
[2019-07-23] MEDS: ATORVASTATIN 20 MG TAB PO SCH (20:43)
[2019-07-23] MEDS: INSULIN DETEMIR (LEVEMIR) 100 UNIT/ML SYR SQ SCH (20:43)
[2019-07-23] MEDS: traZODone HCL 100 MG TAB PO SCH (20:44)
[2019-07-24] MEDS: LEVOTHYROXINE 50 MCG TAB PO SCH (06:10)
[2019-07-24 07:40] LABS: Glucose,Whole Blood 83 mg/dL (75-99)
[2019-07-24] MEDS: INSULIN ASPART (NovoLOG) 100 UNIT/ML VIAL SQ SCH ×7 (07:43→20:16)
[2019-07-24] MEDS: NICOTINE 14MG/24HR PATCH TRANSDERM SCH (08:26)
[2019-07-24] MEDS: FOLIC ACID 1 MG TAB PO SCH (08:26)
[2019-07-24] MEDS: CLOPIDOGREL 75 MG TAB PO SCH (08:26)
[2019-07-24] MEDS: lamoTRIgine 25 MG TAB PO SCH (08:27)
[2019-07-24] MEDS: CHOLECALCIFEROL 1,000 UNIT TAB PO SCH (08:27)
[2019-07-24 12:45] LABS: Glucose,Whole Blood 197 mg/dL (75-99)
--- NOTE | 2019-07-24 16:06 | P.PN ---
Progress Note - Text Progress Note Date: 07/24/19 IDENTIFICATION DATA: 49-year-old male admitted voluntarily to [facility] due with symptoms of depression and suicidal ideations INTERVAL HISTORY: He says he no longer feels suicidal and states he is planning to move out of [place]. He states every thing will be fine as long as he doesnt stay with his mother. He is concerned about changing his bank accounts from [place] to a bank near his future home, but doesnt know where he will be going to. He is currently waiting for social services manager to find him a place to live. He continues to report fragmented sleep. He reports good appetite. He is compliant with his medications and no side effects reported. MENTAL STATUS EXAMINATION: 49 year old male. AMBULATES IN WHEEL CHAIR. Appears stated age in fair grooming and hygiene. speech and thought process are goal directed. mood is reported as ok and affect constricted. denies current auditory hallucinations and visual hallucinations. Denies paranoid ideations. Denies current suicidal or homicidal ideations. he is alert and oriented x 4. Her insight and judgement are improving. Assessment Depressive disorder unspecified, rule out bipolar depression Anxiety disorder Nicotine dependence PLAN: Continue Lamictal 50 mg + 100mg daily for mood stabilization/depression. Trazodone 200mg po qhs for insomnia which can be increased further if he continues to have fragmented sleep Vistaril 25 mg every 6 hours when necessary for anxiety.
[2019-07-24] MEDS: hydrOXYzine PAMOATE 25 MG CAP PO PRN (17:02)
[2019-07-24 17:38] LABS: Glucose,Whole Blood 283 mg/dL (75-99)
[2019-07-24 20:14] LABS: Glucose,Whole Blood 149 mg/dL (75-99)
[2019-07-24] MEDS: INSULIN DETEMIR (LEVEMIR) 100 UNIT/ML SYR SQ SCH (20:16)
[2019-07-24] MEDS: ATORVASTATIN 20 MG TAB PO SCH (20:18)
[2019-07-24] MEDS: lamoTRIgine 100 MG TAB PO SCH (20:18)
[2019-07-24] MEDS: traZODone HCL 100 MG TAB PO SCH (20:18)
[2019-07-24] MEDS: MAG HYDROX/AL HYDROX/SIMETH 30 ML CUP PO PRN (22:55)
[2019-07-25] MEDS: LEVOTHYROXINE 50 MCG TAB PO SCH (06:01)
[2019-07-25 07:46] LABS: Glucose,Whole Blood 85 mg/dL (75-99)
[2019-07-25] MEDS: INSULIN ASPART (NovoLOG) 100 UNIT/ML VIAL SQ SCH ×7 (07:57→20:30)
[2019-07-25] MEDS: CLOPIDOGREL 75 MG TAB PO SCH (08:01)
[2019-07-25] MEDS: CHOLECALCIFEROL 1,000 UNIT TAB PO SCH (08:01)
[2019-07-25] MEDS: LORazepam 1 MG TAB PO PRN ×2 (08:02→17:35)
[2019-07-25] MEDS: NICOTINE 14MG/24HR PATCH TRANSDERM SCH (08:02)
[2019-07-25] MEDS: FOLIC ACID 1 MG TAB PO SCH (08:02)
[2019-07-25] MEDS: lamoTRIgine 25 MG TAB PO SCH (08:02)
--- NOTE | 2019-07-25 10:38 | P.DS ---
Providers Date of admission: 07/18/19 02:23 Expected date of discharge: 07/25/19 Attending physician: Shelton Spann MD Consults: 07/18/19 03:56 Consult Physician Routine Consulting Provider: Reno Hale Consult Reason/Comments: H&P, medical management Do you want consulting provider notified?: Yes, Notify in am Primary care physician: Mitch Interiano - Discharge Diagnosis(es) (1) Bipolar depression Current Visit: Yes Status: Acute Priority: High (2) Anxiety disorder Current Visit: Yes Status: Acute Priority: Medium (3) Nicotine dependence Current Visit: Yes Status: Acute Priority: Low Hospital Course: Admission HPI: Patient is a 49-year-old male with a history of depression who currently lives with his dad brother and mother in a house is and has 1 daughter and collects SSD. Patient presented to the hospital via EMS after posting on [employer] different messages about wanting to end his life, stating that it was a "cry for help. Patient was endorsing depression with homicidal and suicidal ideations in the ER and was admitted to the mental health unit for treatment. Patient claims that he has been having long-standing problems with his mother and states that they do not get along. He claims that he has been feeling homicidal towards his mother for approximately 2 months now. He claims that he had thoughts of jumping out of his chair and strangling her. Patient claims that he has been off medications for years and endorses feeling "edgy" lately and it's mainly related to feelings towards his mother. He claims that his mother has "control issues" and has been taking things out on him which are not his fault. Patient was guarded about most of the details about their arguments however did state that he has no outlet for someone to talk to. He claimed that he did call 911 for help however he states that he did not receive any. She endorsed being in a "swingy mood" and admitted to anxiety and poor sleep and concentration. Patient admitted to having suicidal thoughts however are passive with no plan and admits to having still homicidal thoughts towards his mother wanting to strangle her. At this time patient denies any auditory or visual hallucinations. Patient denies any flight of ideas racing thoughts and increased in goal directed behavior. Patient admits to using cigarettes approximately 1.5 packs per day. He denies using any drugs currently and states that he quit using heroin and cocaine and cannabis over a year ago. He denies using alcohol. Hospital course: Upon admission to the unit patient was initially irritable, depressed/anxious and having suicidal/homicidal ideations. Patient was however directable and agreeable to commence treatment. Patient got along well with other patients on the unit and followed unit protocol. Patient was compliant with the medications and denied any side effects throughout hospital course. Patient was started on Lamictal and titrated up to 150 mg daily for mood stabilization/depression, trazodone titrated up to 150 mg daily for depression/insomnia, Vistaril 25 mg ev carmella 6 hours when needed for anxiety. Patient spoke of his stressors and engaged in therapy both group and individual. Patient was also seen by medical team for history and physical exam. Throughout the course of the hospitalization patient gradually improved with regards to anxiety, mood, sleep and became future oriented with improved insight and judgment. On the day of discharge patient denied any suicidal or homicidal ideations intent or plan denied any auditory or visual hallucinations. Patient stated that he continues to feel some resentment towards his mother however will not go back to her house and will stay away from her. Patient also claimed that he does not have any more homicidal ideations towards her. He denied having access to any guns or weapons. horticulture worker sent out by mail and spoke with mother over the phone for duty to warn. Patient endorsed wanting to live for his health and future. The patient denied any access to guns or weapons. Patient denied any paranoia and did not endorse any delusions. Patient does have a significant history of substance abuse and was counseled on abstaining from all substances including alcohol and marijuana. Patient was also counseled on the medications and need for regular compliance and was encouraged to follow-up with their outpatient appointment for mental health and also for primary care. Prior to discharge a family meeting will be arranged by social media marketing specialist to answer any questions and ensure safety upon discharge. Mental status exam: General Appearance: Patient appears to be older than stated age is alert, pleasant, and cooperative. Patient is in no acute distress and has fair hygiene and grooming . Patient is in wheelchair and appears to be frail. Behavior: Patient is calmly seated without any agitated behavior. Speech: Patient's speech is fluent and nonpressured. Soft-spoken Mood/Affect: Patient reports their mood is "better", affect is congruent and euthymic. Suicidality/Homicidality: Patient denies having any suicidal or homicidal ideation intent or plan. Perceptions: Patient denies any auditory or visual hallucinations. Though content/process: There is no evidence of any delusional thought content and thought process is linear and goal-directed. Memory and concentration: AOX3, grossly intact for the purposes of this session. Can spell "WORLD" backwards correctly. Judgment and insight: fair, improved Impression: Bipolar depression Anxiety disorder Nicotine dependence Plan: -Continue with discharge today as patient has improved and stabilized psychiatrically and is not currently an imminent threat to himself and/or others. Patient also claimed that he does not have any more homicidal ideations towards her. He denied having access to any guns or weapons. horticulture worker sent out by mail and spoke with mother over the phone for duty to warn. -Continue medications: Continue with Lamictal 150 mg daily for mood stabilization/depression, trazodone 200 mg nightly for insomnia/mood, Vistaril 25 mg when needed for anxiety. -Patient was counseled on the need for medication compliance and appropriate follow-up at mental health and also primary care for medical issues. Patient verbalized understanding and agreed. -Social work to arrange for and conduct family meeting to ensure safety upon discharge and answer any questions/concerns. Social work also [facility] for psychiatric care along with follow up with primary care provider. -Patient counseled on abstaining from recreational drugs and marijuana and alcohol. Was informed/educated on the adverse effects on their physical and mental health. Patient verbally agreed and understood -Patient was instructed to return to the hospital or seek immediate medical care if their psychiatric or medical systems do worsen or reoccur. Allergies Allergy/AdvReac Type Severity Reaction Status Date / Time benztropine [From Cogentin] Allergy Unknown Verified 07/17/19 22:07 SODIUM CHANNEL BLOCKERS AdvReac Severe Unknown Uncoded 03/11/16 20:41 Laboratory Results WBC 8.3 k/uL (3.8-10.6) 07/19/19 07:39 RBC 3.77 m/uL (4.30-5.90) L 07/19/19 07:39 Hgb 11.4 gm/dL (13.0-17.5) L 07/19/19 07:39 Hct 34.7 % (39.0-53.0) L 07/19/19 07:39 MCV 92.1 fL (80.0-100.0) 07/19/19 07:39 MCH 30.2 pg (25.0-35.0) 07/19/19 07:39 MCHC 32.8 g/dL (31.0-37.0) 07/19/19 07:39 RDW 14.3 % (11.5-15.5) 07/19/19 07:39 Plt Count 144 k/uL (150-450) L 07/19/19 07:39 Neutrophils % 62 % 07/19/19 07:39 Lymphocytes % 24 % 07/19/19 07:39 Monocytes % 7 % 07/19/19 07:39 Eosinophils % 4 % 07/19/19 07:39 Basophils % 0 % 07/19/19 07:39 Neutrophils # 5.1 k/uL (1.3-7.7) 07/19/19 07:39 Lymphocytes # 2.0 k/uL (1.0-4.8) 07/19/19 07:39 Monocytes # 0.6 k/uL (0-1.0) 07/19/19 07:39 Eosinophils # 0.4 k/uL (0-0.7) 07/19/19 07:39 Basophils # 0.0 k/uL (0-0.2) 07/19/19 07:39 Sodium 139 mmol/L (137-145) 07/20/19 08:52 Potassium 4.7 mmol/L (3.5-5.1) 07/20/19 08:52 Chloride 105 mmol/L (98-107) 07/20/19 08:52 Carbon Dioxide 26 mmol/L (22-30) 07/20/19 08:52 Anion Gap 8 mmol/L 07/20/19 08:52 BUN 45 mg/dL (9-20) H 07/20/19 08:52 Creatinine 1.15 mg/dL (0.66-1.25) 07/20/19 08:52 Est GFR (CKD-EPI)AfAm 87 (>60 ml/min/1.73 sqM) 07/20/19 08:52 Est GFR (CKD-EPI)NonAf 75 (>60 ml/min/1.73 sqM) 07/20/19 08:52 Glucose 82 mg/dL (74-99) 07/21/19 09:05 POC Glucose (mg/dL) 85 mg/dL (75-99) 07/25/19 07:45 POC Glu Nursing Program Manager Jackie Booth 07/25/19 07:[address] Glu mg/dL 209 07/19/19 07:39 Hemoglobin A1c 8.9 % (4.0-6.0) H 07/19/19 07:39 Calcium 9.0 mg/dL (8.4-10.2) 07/20/19 08:52 Total Bilirubin 0.4 mg/dL (0.2-1.3) 07/19/19 07:39 Conjugated Bilirubin 0.0 mg/dL (0.0-0.3) 07/19/19 07:39 Unconjugated Bilirubin 0.3 mg/dL (0.0-1.1) 07/19/19 07:39 Delta Bilirubin 0.1 mg/dL (0.0-0.2) 07/19/19 07:39 AST 38 U/L (17-59) 07/19/19 07:39 ALT 44 U/L (21-72) 07/19/19 07:39 Alkaline Phosphatase 155 U/L (38-126) H 07/19/19 07:39 Troponin I <0.012 ng/mL (0.000-0.034) 07/24/19 06:41 Total Protein 7.0 g/dL (6.3-8.2) 07/19/19 07:39 Albumin 4.0 g/dL (3.5-5.0) 07/19/19 07:39 Triglycerides 127 mg/dL (<150) 07/19/19 07:39 Cholesterol 142 mg/dL (<200) 07/19/19 07:39 LDL Cholesterol, Calc 86 mg/dL (0-99) 07/19/19 07:39 HDL Cholesterol 31 mg/dL (40-60) L 07/19/19 07:39 TSH 1.550 mIU/L (0.465-4.680) 07/19/19 07:39 Urine Opiates Screen Not Detected (NotDetected) 07/18/19 00:09 Ur Oxycodone Screen Not Detected (NotDetected) 07/18/19 00:09 Urine Methadone Screen Not Detected (NotDetected) 07/18/19 00:09 Ur Propoxyphene Screen Not Detected (NotDetected) 07/18/19 00:09 Ur Barbiturates Screen Not Detected (NotDetected) 07/18/19 00:09 U Tricyclic Antidepress Not Detected (NotDetected) 07/18/19 00:09 Ur Phencyclidine Scrn Not Detected (NotDetected) 07/18/19 00:09 Ur Amphetamines Screen Not Detected (NotDetected) 07/18/19 00:09 U Methamphetamines Scrn Not Detected (NotDetected) 07/18/19 00:09 U Benzodiazepines Scrn Not Detected (NotDetected) 07/18/19 00:09 Urine Cocaine Screen Not Detected (NotDetected) 07/18/19 00:09 U Marijuana (THC) Screen Not Detected (NotDetected) 07/18/19 00:09 Vital Signs Temp 98.3 F 07/25/19 04:02 Pulse 78 07/25/19 04:02 Resp 14 07/25/19 04:02 BP 124/77 07/25/19 04:02 Pulse Ox 99 07/24/19 06:14 Intake & Output 07/24/19 07/25/19 07/25/19 18:59 06:59 18:59 Weight 81.6 kg Patient Condition at Discharge: Stable Plan - Discharge Summary New Discharge Prescriptions: New traZODone HCL [Desyrel] 200 mg PO HS 28 Days tab Nicotine 14Mg/24Hr Patch [Habitrol] 1 patch TRANSDERM DAILY 14 Days patch lamoTRIgine [LaMICtal] 150 mg PO DAILY 28 Days tab Levothyroxine Sodium [Synthroid] 175 mcg PO DAILY 28 Days tablet hydrOXYzine PAMOATE [Vistaril] 25 mg PO BID 28 Days cap Insulin Glargine,Hum.rec.anlog [Basaglar Kwikpen U-100] 20 unit SQ HS 30 Days #3 syr Continue INSULIN ASPART (NovoLOG) [NovoLOG (formulary)] 2 - 8 unit SQ AC-TID Ferrous Sulfate 220 mg PO BID INSULIN ASPART (NovoLOG) [NovoLOG (formulary)] See Protocol SQ ACHS Folic Acid 1 mg PO DAILY 28 Days tab Atorvastatin [Lipitor] 20 mg PO HS 28 Days tab Clopidogrel Bisulfate [Plavix] 75 mg PO DAILY 28 Days tab Cholecalciferol [Vitamin D3 (25 Mcg = 1000 Iu)] 5,000 unit PO DAILY 28 Days tab Discontinued Levothyroxine Sodium [Synthroid] 175 mcg PO DAILY Insulin Glargine [Lantus] 20 unit SQ HS Acetaminophen with Codeine [Tylenol w/codeine #3] 1 tab PO Q6H PRN PRN Reason: Pain Discharge Medication List Ferrous Sulfate 220 mg PO BID 07/17/19 [History] INSULIN ASPART (NovoLOG) [NovoLOG (formulary)] 2 - 8 unit SQ AC-TID 07/17/19 [History] INSULIN ASPART (NovoLOG) [NovoLOG (formulary)] See Protocol SQ ACHS 07/17/19 [History] Atorvastatin [Lipitor] 20 mg PO HS 28 Days tab 07/25/19 [Rx] Cholecalciferol [Vitamin D3 (25 Mcg = 1000 Iu)] 5,000 unit PO DAILY 28 Days tab 07/25/19 [Rx] Clopidogrel Bisulfate [Plavix] 75 mg PO DAILY 28 Days tab 07/25/19 [Rx] Folic Acid 1 mg PO DAILY 28 Days tab 07/25/19 [Rx] Insulin Glargine,Hum.rec.anlog [Basaglar Kwikpen U-100] 20 unit SQ HS 30 Days #3 syr 07/25/19 [Rx] Levothyroxine Sodium [Synthroid] 175 mcg PO DAILY 28 Days tablet 07/25/19 [Rx] Nicotine 14Mg/24Hr Patch [Habitrol] 1 patch TRANSDERM DAILY 14 Days patch 07/25/19 [Rx] hydrOXYzine PAMOATE [Vistaril] 25 mg PO BID 28 Days cap 07/25/19 [Rx] lamoTRIgine [LaMICtal] 150 mg PO DAILY 28 Days tab 07/25/19 [Rx] traZODone HCL [Desyrel] 200 mg PO HS 28 Days tab 07/25/19 [Rx] Follow up Appointment(s)/Referral(s): [facility] [Outside] - 07/28/19 9:30 am (Walk in intake ) Mitch Interiano MD [Primary Care Provider] - 1-2 days Patient Instructions/Handouts: Mood Disorders (DC), Bipolar Disorder (DC) Activity/Diet/Wound Care/Special Instructions: Activity and diet as tolerated. Avoid the use of street drugs and alcohol. Take all medications as prescribed. When you are in need of refills on your medications please contact your medical provider and/or outpatient psychiatrist to have this done. Please go to scheduled outpatient appointment for aftercare. If symptoms return or become worse call the crisis line at and/or go to the nearest emergency room for an evaluation. Discharge Disposition: HOME SELF-CARE
[2019-07-25 12:45] LABS: Glucose,Whole Blood 125 mg/dL (75-99)
[2019-07-25 17:34] LABS: Glucose,Whole Blood 113 mg/dL (75-99)
[2019-07-25 20:19] LABS: Glucose,Whole Blood 275 mg/dL (75-99)
[2019-07-25] MEDS: ATORVASTATIN 20 MG TAB PO SCH (20:31)
[2019-07-25] MEDS: lamoTRIgine 100 MG TAB PO SCH (20:31)
[2019-07-25] MEDS: traZODone HCL 100 MG TAB PO SCH (20:31)
[2019-07-25] MEDS: INSULIN DETEMIR (LEVEMIR) 100 UNIT/ML SYR SQ SCH (20:32)
[2019-07-26] MEDS: LEVOTHYROXINE 50 MCG TAB PO SCH (06:46)
[2019-07-26] MEDS: INSULIN ASPART (NovoLOG) 100 UNIT/ML VIAL SQ SCH ×7 (07:43→21:29)
[2019-07-26 07:45] LABS: Glucose,Whole Blood 117 mg/dL (75-99)
[2019-07-26] MEDS: CLOPIDOGREL 75 MG TAB PO SCH (08:26)
[2019-07-26] MEDS: NICOTINE 14MG/24HR PATCH TRANSDERM SCH (08:26)
[2019-07-26] MEDS: CHOLECALCIFEROL 1,000 UNIT TAB PO SCH (08:26)
[2019-07-26] MEDS: lamoTRIgine 25 MG TAB PO SCH (08:27)
[2019-07-26] MEDS: FOLIC ACID 1 MG TAB PO SCH (08:27)
--- NOTE | 2019-07-26 11:31 | P.PN ---
Progress Note - Text Progress Note Date: 07/26/19 Interval History: Patient was seen in his wheelchair in the hallways and was directable and agre eable to be interviewed in the office. Patient states that he feels much better today claims that he is thinking about discharge and when he can leave the unit. Patient had a concern yesterday which prevented him from going to the assisted which was that he did not have his wheelchair and claims that his mother was not able to bring it for him from his house. Patient states that he cannot leave t he unit without a wheelchair as he is not able to walk. Patient did state that last night he did have a minor fall, no head trauma as he was attempting to get into the wheelchair in the middle the night and tripped. He states that he did have some minor pain related to this however the pain went away and patient denies any other problems from it. He states that he has been remaining positive on the unit and going to groups. Patient offered no other complaints and appeared to be more future oriented about his disposition. Patient stated that he is still having homicidal thoughts towards his mother although has no plan or intent and wants to stay away from her. Patient spoke about continuing to try to participate in groups and gained benefit from it. Patient claims that his sleep has been improving. He admits to fair energy. Patient denies any auditory, visual hallucinations and denies any paranoia or delusions. Patient denies any side effects from the medications and has been compliant with meds. Patient denies any rash on his skin and claims that he's been checking his skin daily for it. Mental Status Exam: General Appearance: Patient appears to be older than stated age is alert, directable, and attempts to cooperate. Improving hygiene and poor grooming. Fair eye contact. Behavior: Patient is calmly seated without any agitated behavior. Patient is seated in a wheelchair. Speech: Patient's speech is fluent and nonpressured. Soft tone Mood/Affect: Patient reports their mood is improving mildly, affect is congruent and constricted. Suicidality/Homicidality: Admits to homicidal ideations with no plan or intent towards his mother. Denies any suicidal ideations. Perceptions: Patient denies any auditory or visual hallucinations. Though content/process: There is no evidence of any delusional thought content and thought process is tangential/circumstantial. Memory and concentration: AOX3, grossly intact for the purposes of this session. Judgment and insight: Fair, improving mildly Assessment Depressive disorder unspecified, rule out bipolar depression Anxiety disorder Nicotine dependence Plan: -Patient continues to meet criteria for inpatient psychiatric admission for symptom stabilization and safety. Patient has signed adult voluntary form and medication consent and was placed in patient's chart. -Medications: Continue with Lamictal 50 mg + 100mg daily for mood stabilization/depression. We'll continue with trazodone 200 mg nightly for insomnia/mood. Continue with Vistaril 25 mg every 6 hours when necessary for anxiety. -When necessary Ativan for agitation/aggression. -NRT - nicotine patch -SW on board for discharge planning. Patient was meant to be discharged yesterday however did not have a wheelchair and his mother was not able to bring it in for him. Social work to attempt to reach out to patient's father to see if he can bring in the wheelchair or if not we'll attempt to find a wheelchair from another source. Patient to be discharged to assisted thereafter.
[2019-07-26 12:43] LABS: Glucose,Whole Blood 151 mg/dL (75-99)
[2019-07-26 14:28] VITALS: BMI 24.4
[2019-07-26 17:24] LABS: Glucose,Whole Blood 185 mg/dL (75-99)
[2019-07-26 21:11] LABS: Glucose,Whole Blood 243 mg/dL (75-99)
[2019-07-26] MEDS: lamoTRIgine 100 MG TAB PO SCH (21:30)
[2019-07-26] MEDS: traZODone HCL 100 MG TAB PO SCH (21:31)
[2019-07-26] MEDS: ATORVASTATIN 20 MG TAB PO SCH (21:31)
[2019-07-26] MEDS: INSULIN DETEMIR (LEVEMIR) 100 UNIT/ML SYR SQ SCH (21:31)
[2019-07-27] MEDS: LEVOTHYROXINE 50 MCG TAB PO SCH (06:26)
[2019-07-27 07:43] LABS: Glucose,Whole Blood 184 mg/dL (75-99)
[2019-07-27] MEDS: lamoTRIgine 25 MG TAB PO SCH (07:56)
[2019-07-27] MEDS: FOLIC ACID 1 MG TAB PO SCH (07:56)
[2019-07-27] MEDS: NICOTINE 14MG/24HR PATCH TRANSDERM SCH (07:56)
[2019-07-27] MEDS: CHOLECALCIFEROL 1,000 UNIT TAB PO SCH (07:56)
[2019-07-27] MEDS: CLOPIDOGREL 75 MG TAB PO SCH (07:56)
[2019-07-27] MEDS: INSULIN ASPART (NovoLOG) 100 UNIT/ML VIAL SQ SCH ×7 (07:56→20:20)
--- NOTE | 2019-07-27 10:08 | P.DS ---
Providers Date of admission: 07/18/19 02:23 Expected date of discharge: 07/27/19 Attending physician: Shelton Spann MD Consults: 07/18/19 03:56 Consult Physician Routine Consulting Provider: Reno Hale Consult Reason/Comments: H&P, medical management Do you want consulting provider notified?: Yes, Notify in am Primary care physician: Mitch Interiano - Discharge Diagnosis(es) (1) Bipolar depression Current Visit: Yes Status: Acute Priority: High (2) Anxiety disorder Current Visit: Yes Status: Acute Priority: Medium (3) Nicotine dependence Current Visit: Yes Status: Acute Priority: Low Hospital Course: Admission HPI: Patient is a 49-year-old male with a history of depression who currently lives with his dad brother and mother in a house is and has 1 daughter and collects SSD. Patient presented to the hospital via EMS after posting on [employer] different messages about wanting to end his life, stating that it was a "cry for help. Patient was endorsing depression with homicidal and suicidal ideations in the ER and was admitted to the mental health unit for treatment. Patient claims that he has been having long-standing problems with his mother and states that they do not get along. He claims that he has been feeling homicidal towards his mother for approximately 2 months now. He claims that he had thoughts of jumping out of his chair and strangling her. Patient claims that he has been off medications for years and endorses feeling "edgy" lately and it's mainly related to feelings towards his mother. He claims that his mother has "control issues" and has been taking things out on him which are not his fault. Patient was guarded about most of the details about their arguments however did state that he has no outlet for someone to talk to. He claimed that he did call 911 for help however he states that he did not receive any. She endorsed being in a "swingy mood" and admitted to anxiety and poor sleep and concentration. Patient admitted to having suicidal thoughts however are passive with no plan and admits to having still homicidal thoughts towards his mother wanting to strangle her. At this time patient denies any auditory or visual hallucinations. Patient denies any flight of ideas racing thoughts and increased in goal directed behavior. Patient admits to using cigarettes approximately 1.5 packs per day. He denies using any drugs currently and states that he quit using heroin and cocaine and cannabis over a year ago. He denies using alcohol. Hospital course: Upon admission to the unit patient was initially irritable, depressed/anxious and having suicidal/homicidal ideations. Patient was however directable and agreeable to commence treatment. Patient got along well with other patients on the unit and followed unit protocol. Patient was compliant with the medications and denied any side effects throughout hospital course. Patient was started on Lamictal and titrated up to 150 mg daily for mood stabilization/depression, trazodone titrated up to 150 mg daily for depression/insomnia, Vistaril 25 mg ev carmella 6 hours when needed for anxiety. Patient spoke of his stressors and engaged in therapy both group and individual. Patient was also seen by medical team for history and physical exam. Throughout the course of the hospitalization patient gradually improved with regards to anxiety, mood, sleep and became future oriented with improved insight and judgment. On the day of discharge patient denied any suicidal or homicidal ideations intent or plan denied any auditory or visual hallucinations. Patient stated that he continues to feel some resentment towards his mother however will not go back to her house and will stay away from her. Patient also claimed that he does not have any more homicidal ideations towards her. He denied having access to any guns or weapons. picking table worker sent out by mail and spoke with mother over the phone for duty to warn. Patient endorsed wanting to live for his health and future. The patient denied any access to guns or weapons. Patient denied any paranoia and did not endorse any delusions. Patient does have a significant history of substance abuse and was counseled on abstaining from all substances including alcohol and marijuana. Patient was also counseled on the medications and need for regular compliance and was encouraged to follow-up with their outpatient appointment for mental health and also for primary care. Prior to discharge a family meeting will be arranged by school social worker to answer any questions and ensure safety upon discharge. Mental status exam: General Appearance: Patient appears to be older than stated age is alert, pleasant, and cooperative. Patient is in no acute distress and has fair hygiene and grooming . Patient is in wheelchair and appears to be frail. Behavior: Patient is calmly seated without any agitated behavior. Speech: Patient's speech is fluent and nonpressured. Soft-spoken Mood/Affect: Patient reports their mood is "good", affect is congruent and euthymic. Suicidality/Homicidality: Patient denies having any suicidal or homicidal ideation intent or plan. Perceptions: Patient denies any auditory or visual hallucinations. Though content/process: There is no evidence of any delusional thought content and thought process is linear and goal-directed. Memory and concentration: AOX3, grossly intact for the purposes of this session. Can spell "WORLD" backwards correctly. Judgment and insight: fair, improved Impression: Bipolar depression Anxiety disorder Nicotine dependence Plan: -Continue with discharge today as patient has improved and stabilized psychiatrically and is not currently an imminent threat to himself and/or others. Patient also claimed that he does not have any more homicidal ideations towards her. He denied having access to any guns or weapons. picking table worker se nt out by mail and spoke with mother over the phone for duty to warn. -Continue medications: Continue with Lamictal 150 mg daily for mood stabilization/depression, trazodone 200 mg nightly for insomnia/mood, Vistaril 25 mg when needed for anxiety. -Patient was counseled on the need for medication compliance and appropriate follow-up at mental health and also primary care for medical issues. Patient verbalized understanding and agreed. -Social work to arrange for and conduct family meeting to ensure safety upon discharge and answer any questions/concerns. Social work also to arrange for patients follow up appointments with [facility] for psychiatric care along with follow up with primary care provider. -Patient counseled on abstaining from recreational drugs and marijuana and alcohol. Was informed/educated on the adverse effects on their physical and mental health. Patient verbally agreed and understood -Patient was instructed to return to the hospital or seek immediate medical care if their psychiatric or medical systems do worsen or reoccur. Allergies Allergy/AdvReac Type Severity Reaction Status Date / Time benztropine [From Cogentin] Allergy Unknown Verified 07/17/19 22:07 SODIUM CHANNEL BLOCKERS AdvReac Severe Unknown Uncoded 03/11/16 20:41 Laboratory Results WBC 8.3 k/uL (3.8-10.6) 07/19/19 07:39 RBC 3.77 m/uL (4.30-5.90) L 07/19/19 07:39 Hgb 11.4 gm/dL (13.0-17.5) L 07/19/19 07:39 Hct 34.7 % (39.0-53.0) L 07/19/19 07:39 MCV 92.1 fL (80.0-100.0) 07/19/19 07:39 MCH 30.2 pg (25.0-35.0) 07/19/19 07:39 MCHC 32.8 g/dL (31.0-37.0) 07/19/19 07:39 RDW 14.3 % (11.5-15.5) 07/19/19 07:39 Plt Count 144 k/uL (150-450) L 07/19/19 07:39 Neutrophils % 62 % 07/19/19 07:39 Lymphocytes % 24 % 07/19/19 07:39 Monocytes % 7 % 07/19/19 07:39 Eosinophils % 4 % 07/19/19 07:39 Basophils % 0 % 07/19/19 07:39 Neutrophils # 5.1 k/uL (1.3-7.7) 07/19/19 07:39 Lymphocytes # 2.0 k/uL (1.0-4.8) 07/19/19 07:39 Monocytes # 0.6 k/uL (0-1.0) 07/19/19 07:39 Eosinophils # 0.4 k/uL (0-0.7) 07/19/19 07:39 Basophils # 0.0 k/uL (0-0.2) 07/19/19 07:39 Sodium 139 mmol/L (137-145) 07/20/19 08:52 Potassium 4.7 mmol/L (3.5-5.1) 07/20/19 08:52 Chloride 105 mmol/L (98-107) 07/20/19 08:52 Carbon Dioxide 26 mmol/L (22-30) 07/20/19 08:52 Anion Gap 8 mmol/L 07/20/19 08:52 BUN 45 mg/dL (9-20) H 07/20/19 08:52 Creatinine 1.15 mg/dL (0.66-1.25) 07/20/19 08:52 Est GFR (CKD-EPI)AfAm 87 (>60 ml/min/1.73 sqM) 07/20/19 08:52 Est GFR (CKD-EPI)NonAf 75 (>60 ml/min/1.73 sqM) 07/20/19 08:52 Glucose 82 mg/dL (74-99) 07/21/19 09:05 POC Glucose (mg/dL) 184 mg/dL (75-99) H 07/27/19 07:40 POC Glu [employer] Supply Specialist ID Charo Mace 07/27/19 07:[address] Glu mg/dL 209 07/19/19 07:39 Hemoglobin A1c 8.9 % (4.0-6.0) H 07/19/19 07:39 Calcium 9.0 mg/dL (8.4-10.2) 07/20/19 08:52 Total Bilirubin 0.4 mg/dL (0.2-1.3) 07/19/19 07:39 Conjugated Bilirubin 0.0 mg/dL (0.0-0.3) 07/19/19 07:39 Unconjugated Bilirubin 0.3 mg/dL (0.0-1.1) 07/19/19 07:39 Delta Bilirubin 0.1 mg/dL (0.0-0.2) 07/19/19 07:39 AST 38 U/L (17-59) 07/19/19 07:39 ALT 44 U/L (21-72) 07/19/19 07:39 Alkaline Phosphatase 155 U/L (38-126) H 07/19/19 07:39 Troponin I <0.012 ng/mL (0.000-0.034) 07/24/19 06:41 Total Protein 7.0 g/dL (6.3-8.2) 07/19/19 07:39 Albumin 4.0 g/dL (3.5-5.0) 07/19/19 07:39 Triglycerides 127 mg/dL (<150) 07/19/19 07:39 Cholesterol 142 mg/dL (<200) 07/19/19 07:39 LDL Cholesterol, Calc 86 mg/dL (0-99) 07/19/19 07:39 HDL Cholesterol 31 mg/dL (40-60) L 07/19/19 07:39 TSH 1.550 mIU/L (0.465-4.680) 07/19/19 07:39 Urine Opiates Screen Not Detected (NotDetected) 07/18/19 00:09 Ur Oxycodone Screen Not Detected (NotDetected) 07/18/19 00:09 Urine Methadone Screen Not Detected (NotDetected) 07/18/19 00:09 Ur Propoxyphene Screen Not Detected (NotDetected) 07/18/19 00:09 Ur Barbiturates Screen Not Detected (NotDetected) 07/18/19 00:09 U Tricyclic Antidepress Not Detected (NotDetected) 07/18/19 00:09 Ur Phencyclidine Scrn Not Detected (NotDetected) 07/18/19 00:09 Ur Amphetamines Screen Not Detected (NotDetected) 07/18/19 00:09 U Methamphetamines Scrn Not Detected (NotDetected) 07/18/19 00:09 U Benzodiazepines Scrn Not Detected (NotDetected) 07/18/19 00:09 Urine Cocaine Screen Not Detected (NotDetected) 07/18/19 00:09 U Marijuana (THC) Screen Not Detected (NotDetected) 07/18/19 00:09 Vital Signs Temp 98.7 F 07/27/19 06:09 Pulse 76 07/27/19 06:09 Resp 18 07/27/19 06:09 BP 119/58 07/27/19 06:09 Pulse Ox 99 07/24/19 06:14 Intake & Output 07/26/19 07/27/19 07/27/19 18:59 06:59 18:59 Weight 81.6 kg Patient Condition at Discharge: Stable Plan - Discharge Summary New Discharge Prescriptions: New traZODone HCL [Desyrel] 200 mg PO HS 28 Days tab Nicotine 14Mg/24Hr Patch [Habitrol] 1 patch TRANSDERM DAILY 14 Days patch lamoTRIgine [LaMICtal] 150 mg PO DAILY 28 Days tab Levothyroxine Sodium [Synthroid] 175 mcg PO DAILY 28 Days tablet hydrOXYzine PAMOATE [Vistaril] 25 mg PO BID 28 Days cap Insulin Glargine,Hum.rec.anlog [Basaglar Kwikpen U-100] 20 unit SQ HS 30 Days #3 syr Continue INSULIN ASPART (NovoLOG) [NovoLOG (formulary)] 2 - 8 unit SQ AC-TID Ferrous Sulfate 220 mg PO BID INSULIN ASPART (NovoLOG) [NovoLOG (formulary)] See Protocol SQ ACHS Folic Acid 1 mg PO DAILY 28 Days tab Atorvastatin [Lipitor] 20 mg PO HS 28 Days tab Clopidogrel Bisulfate [Plavix] 75 mg PO DAILY 28 Days tab Cholecalciferol [Vitamin D3 (25 Mcg = 1000 Iu)] 5,000 unit PO DAILY 28 Days tab Discontinued Levothyroxine Sodium [Synthroid] 175 mcg PO DAILY Insulin Glargine [Lantus] 20 unit SQ HS Acetaminophen with Codeine [Tylenol w/codeine #3] 1 tab PO Q6H PRN PRN Reason: Pain Discharge Medication List Ferrous Sulfate 220 mg PO BID 07/17/19 [History] INSULIN ASPART (NovoLOG) [NovoLOG (formulary)] 2 - 8 unit SQ AC-TID 07/17/19 [History] INSULIN ASPART (NovoLOG) [NovoLOG (formulary)] See Protocol SQ ACHS 07/17/19 [History] Atorvastatin [Lipitor] 20 mg PO HS 28 Days tab 07/25/19 [Rx] Cholecalciferol [Vitamin D3 (25 Mcg = 1000 Iu)] 5,000 unit PO DAILY 28 Days tab 07/25/19 [Rx] Clopidogrel Bisulfate [Plavix] 75 mg PO DAILY 28 Days tab 07/25/19 [Rx] Folic Acid 1 mg PO DAILY 28 Days tab 07/25/19 [Rx] Insulin Glargine,Hum.rec.anlog [Basaglar Kwikpen U-100] 20 unit SQ HS 30 Days #3 syr 07/25/19 [Rx] Levothyroxine Sodium [Synthroid] 175 mcg PO DAILY 28 Days tablet 07/25/19 [Rx] Nicotine 14Mg/24Hr Patch [Habitrol] 1 patch TRANSDERM DAILY 14 Days patch 07/25/19 [Rx] hydrOXYzine PAMOATE [Vistaril] 25 mg PO BID 28 Days cap 07/25/19 [Rx] lamoTRIgine [LaMICtal] 150 mg PO DAILY 28 Days tab 07/25/19 [Rx] traZODone HCL [Desyrel] 200 mg PO HS 28 Days tab 07/25/19 [Rx] Follow up Appointment(s)/Referral(s): [facility] [Outside] - 07/28/19 9:30 am (Walk in intake ) Mitch Interiano MD [Primary Care Provider] - 1-2 days Patient Instructions/Handouts: How to Stop Smoking (DC), Mood Disorders (DC), Bipolar Disorder (DC), Managing Diabetes During Sick Days (DC), What to Do if Your Blood Sugar is Low (ED), Diabetes and Nutrition (DC) Activity/Diet/Wound Care/Special Instructions: Activity and diet as tolerated. Avoid the use of street drugs and alcohol. Take all medications as prescribed. When you are in need of refills on your medications please contact your medical provider and/or outpatient psychiatrist to have this done. Please go to scheduled outpatient appointment for aftercare. If symptoms return or become worse call the crisis line at and/or go to the nearest emergency room for an evaluation. Discharge Disposition: HOME SELF-CARE
[2019-07-27 12:51] LABS: Glucose,Whole Blood 141 mg/dL (75-99)
[2019-07-27 17:53] LABS: Glucose,Whole Blood 204 mg/dL (75-99)
[2019-07-27 20:12] LABS: Glucose,Whole Blood 184 mg/dL (75-99)
[2019-07-27] MEDS ORDERED: INSULIN DETEMIR (LEVEMIR) 100 UNIT/ML SYR SQ SCH (21:00)
[2019-07-27] MEDS: lamoTRIgine 100 MG TAB PO SCH (21:31)
[2019-07-27] MEDS: ATORVASTATIN 20 MG TAB PO SCH (21:31)
[2019-07-27] MEDS: traZODone HCL 100 MG TAB PO SCH (21:31)
[2019-07-27] MEDS: LORazepam 1 MG TAB PO PRN (21:32)
[2019-07-28 05:28] VITALS: BP 120/72; PULSE 84; RESP 17; TEMP 98.6
[2019-07-28] MEDS: LEVOTHYROXINE 50 MCG TAB PO SCH (06:02)
[2019-07-28 07:39] LABS: Glucose,Whole Blood 212 mg/dL (75-99)
[2019-07-28] MEDS: INSULIN ASPART (NovoLOG) 100 UNIT/ML VIAL SQ SCH ×2 (07:56)
[2019-07-28] MEDS: CLOPIDOGREL 75 MG TAB PO SCH (08:01)
[2019-07-28] MEDS: CHOLECALCIFEROL 1,000 UNIT TAB PO SCH (08:01)
[2019-07-28] MEDS: NICOTINE 14MG/24HR PATCH TRANSDERM SCH (08:01)
[2019-07-28] MEDS: FOLIC ACID 1 MG TAB PO SCH (08:01)
[2019-07-28] MEDS: lamoTRIgine 25 MG TAB PO SCH (08:01)
--- NOTE | 2019-07-28 10:00 | P.DS ---
Providers Date of admission: 07/18/19 02:23 Expected date of discharge: 07/28/19 Attending physician: Shelton Spann MD Consults: 07/18/19 03:56 Consult Physician Routine Consulting Provider: Reno Hale Consult Reason/Comments: H&P, medical management Do you want consulting provider notified?: Yes, Notify in am Primary care physician: Mitch Interiano - Discharge Diagnosis(es) (1) Bipolar depression Current Visit: Yes Status: Acute Priority: High (2) Anxiety disorder Current Visit: Yes Status: Acute Priority: Medium (3) Nicotine dependence Current Visit: Yes Status: Acute Priority: Low Hospital Course: Admission HPI: Patient is a 49-year-old male with a history of depression who currently lives with his dad brother and mother in a house is and has 1 daughter and collects SSD. Patient presented to the hospital via EMS after posting on [employer] different messages about wanting to end his life, stating that it was a "cry for help. Patient was endorsing depression with homicidal and suicidal ideations in the ER and was admitted to the mental health unit for treatment. Patient claims that he has been having long-standing problems with his mother and states that they do not get along. He claims that he has been feeling homicidal towards his mother for approximately 2 months now. He claims that he had thoughts of jumping out of his chair and strangling her. Patient claims that he has been off medications for years and endorses feeling "edgy" lately and it's mainly related to feelings towards his mother. He claims that his mother has "control issues" and has been taking things out on him which are not his fault. Patient was guarded about most of the details about their arguments however did state that he has no outlet for someone to talk to. He claimed that he did call 911 for help however he states that he did not receive any. She endorsed being in a "swingy mood" and admitted to anxiety and poor sleep and concentration. Patient admitted to having suicidal thoughts however are passive with no plan and admits to having still homicidal thoughts towards his mother wanting to strangle her. At this time patient denies any auditory or visual hallucinations. Patient denies any flight of ideas racing thoughts and increased in goal directed behavior. Patient admits to using cigarettes approximately 1.5 packs per day. He denies using any drugs currently and states that he quit using heroin and cocaine and cannabis over a year ago. He denies using alcohol. Hospital course: Upon admission to the unit patient was initially irritable, depressed/anxious and having suicidal/homicidal ideations. Patient was however directable and agreeable to commence treatment. Patient got along well with other patients on the unit and followed unit protocol. Patient was compliant with the medications and denied any side effects throughout hospital course. Patient was started on Lamictal and titrated up to 150 mg daily for mood stabilization/depression, trazodone titrated up to 150 mg daily for depression/insomnia, Vistaril 25 mg e very 6 hours when needed for anxiety. Patient spoke of his stressors and engaged in therapy both group and individual. Patient was also seen by medical team for history and physical exam. Throughout the course of the hospitalization patient gradually improved with regards to anxiety, mood, impulse control, sleep and became future oriented with improved insight and judgment. On the day of discharge patient denied any suicidal or homicidal ideations intent or plan denied any auditory or visual hallucinations. Patient stated that he continues to feel some resentment towards his mother however will not go back to her house and will stay away from her. Patient also claimed that he does not have any more homicidal ideations towards her. He denied having access to any guns or weapons. transplant worker sent out by mail and spoke with mother over the phone for duty to warn. Patient endorsed wanting to live for his health and future. The patient denied any access to guns or weapons. Elina ent denied any paranoia and did not endorse any delusions. Patient does have a significant history of substance abuse and was counseled on abstaining from all substances including alcohol and marijuana. Patient was also counseled on the medications and need for regular compliance and was encouraged to follow-up with their outpatient appointment for mental health and also for primary care. Prior to discharge a family meeting will be arranged by social services analyst to answer any questions and ensure safety upon discharge. Patient was attempted to be discharged several times however it was unsuccessful due to several different reasons including patient having a wheelchair as family did not bring for him, [facility] unable to accommodate him and patient not having his diabetic supplies/insulin covered by his insurance. Mental status exam: General Appearance: Patient appears to be older than stated age is alert, pleasant, and cooperative. Patient is in no acute distress and has fair hygiene and grooming . Patient is in wheelchair and appears to be frail. Behavior: Patient is calmly seated without any agitated behavior. Speech: Patient's speech is fluent and nonpressured. Soft-spoken Mood/Affect: Patient reports their mood is "good", affect is congruent and euthymic. Suicidality/Homicidality: Patient denies having any suicidal or homicidal ideation intent or plan. Perceptions: Patient denies any auditory or visual hallucinations. Though content/process: There is no evidence of any delusional thought content and thought process is linear and goal-directed. Memory and concentration: AOX3, grossly intact for the purposes of this session. Can spell "WORLD" backwards correctly. Judgment and insight: fair, improved Impression: Bipolar depression Anxiety disorder Nicotine dependence Plan: -Continue with discharge today as patient has improved and stabilized psychiatrically and is not currently an imminent threat to himself and/or others. Patient also claimed that he does not have any more homicidal ideations towards her. He denied having access to any guns or weapons. transplant worker sent out by mail and spoke with mother over the phone for duty to warn. -Continue medications: Continue with Lamictal 150 mg daily for mood stabilization/depression, trazodone 200 mg nightly for insomnia/mood, Vistaril 25 mg when needed for anxiety. -Patient was counseled on the need for medication compliance and appropriate follow-up at mental health and also primary care for medical issues. Patient verbalized understanding and agreed. -Social work to arrange for and conduct family meeting to ensure safety upon discharge and answer any questions/concerns. Social work also to arrange for patients follow up appointments with [facility] for psychiatric care along with follow up with primary care provider. transplant worker called [facility] to ensure that they can accommodate patient in his wheelchair today and will have a bed for him. -Patient counseled on abstaining from recreational drugs and marijuana and alcohol. Was informed/educated on the adverse effects on their physical and mental health. Patient verbally agreed and understood -Patient was instructed to return to the hospital or seek immediate medical care if their psychiatric or medical systems do worsen or reoccur. Allergies Allergy/AdvReac Type Severity Reaction Status Date / Time benztropine [From Cogentin] Allergy Unknown Verified 07/17/19 22:07 SODIUM CHANNEL BLOCKERS AdvReac Severe Unknown Uncoded 03/11/16 20:41 Laboratory Results WBC 8.3 k/uL (3.8-10.6) 07/19/19 07:39 RBC 3.77 m/uL (4.30-5.90) L 07/19/19 07:39 Hgb 11.4 gm/dL (13.0-17.5) L 07/19/19 07:39 Hct 34.7 % (39.0-53.0) L 07/19/19 07:39 MCV 92.1 fL (80.0-100.0) 07/19/19 07:39 MCH 30.2 pg (25.0-35.0) 07/19/19 07:39 MCHC 32.8 g/dL (31.0-37.0) 07/19/19 07:39 RDW 14.3 % (11.5-15.5) 07/19/19 07:39 Plt Count 144 k/uL (150-450) L 07/19/19 07:39 Neutrophils % 62 % 07/19/19 07:39 Lymphocytes % 24 % 07/19/19 07:39 Monocytes % 7 % 07/19/19 07:39 Eosinophils % 4 % 07/19/19 07:39 Basophils % 0 % 07/19/19 07:39 Neutrophils # 5.1 k/uL (1.3-7.7) 07/19/19 07:39 Lymphocytes # 2.0 k/uL (1.0-4.8) 07/19/19 07:39 Monocytes # 0.6 k/uL (0-1.0) 07/19/19 07:39 Eosinophils # 0.4 k/uL (0-0.7) 07/19/19 07:39 Basophils # 0.0 k/uL (0-0.2) 07/19/19 07:39 Sodium 139 mmol/L (137-145) 07/20/19 08:52 Potassium 4.7 mmol/L (3.5-5.1) 07/20/19 08:52 Chloride 105 mmol/L (98-107) 07/20/19 08:52 Carbon Dioxide 26 mmol/L (22-30) 07/20/19 08:52 Anion Gap 8 mmol/L 07/20/19 08:52 BUN 45 mg/dL (9-20) H 07/20/19 08:52 Creatinine 1.15 mg/dL (0.66-1.25) 07/20/19 08:52 Est GFR (CKD-EPI)AfAm 87 (>60 ml/min/1.73 sqM) 07/20/19 08:52 Est GFR (CKD-EPI)NonAf 75 (>60 ml/min/1.73 sqM) 07/20/19 08:52 Glucose 82 mg/dL (74-99) 07/21/19 09:05 POC Glucose (mg/dL) 212 mg/dL (75-99) H 07/28/19 07:38 POC Glu Banquet Food Server ID Corinne Simpson 07/28/19 07:[address] Glu mg/dL 209 07/19/19 07:39 Hemoglobin A1c 8.9 % (4.0-6.0) H 07/19/19 07:39 Calcium 9.0 mg/dL (8.4-10.2) 07/20/19 08:52 Total Bilirubin 0.4 mg/dL (0.2-1.3) 07/19/19 07:39 Conjugated Bilirubin 0.0 mg/dL (0.0-0.3) 07/19/19 07:39 Unconjugated Bilirubin 0.3 mg/dL (0.0-1.1) 07/19/19 07:39 Delta Bilirubin 0.1 mg/dL (0.0-0.2) 07/19/19 07:39 AST 38 U/L (17-59) 07/19/19 07:39 ALT 44 U/L (21-72) 07/19/19 07:39 Alkaline Phosphatase 155 U/L (38-126) H 07/19/19 07:39 Troponin I <0.012 ng/mL (0.000-0.034) 07/24/19 06:41 Total Protein 7.0 g/dL (6.3-8.2) 07/19/19 07:39 Albumin 4.0 g/dL (3.5-5.0) 07/19/19 07:39 Triglycerides 127 mg/dL (<150) 07/19/19 07:39 Cholesterol 142 mg/dL (<200) 07/19/19 07:39 LDL Cholesterol, Calc 86 mg/dL (0-99) 07/19/19 07:39 HDL Cholesterol 31 mg/dL (40-60) L 07/19/19 07:39 TSH 1.550 mIU/L (0.465-4.680) 07/19/19 07:39 Urine Opiates Screen Not Detected (NotDetected) 07/18/19 00:09 Ur Oxycodone Screen Not Detected (NotDetected) 07/18/19 00:09 Urine Methadone Screen Not Detected (NotDetected) 07/18/19 00:09 Ur Propoxyphene Screen Not Detected (NotDetected) 07/18/19 00:09 Ur Barbiturates Screen Not Detected (NotDetected) 07/18/19 00:09 U Tricyclic Antidepress Not Detected (NotDetected) 07/18/19 00:09 Ur Phencyclidine Scrn Not Detected (NotDetected) 07/18/19 00:09 Ur Amphetamines Screen Not Detected (NotDetected) 07/18/19 00:09 U Methamphetamines Scrn Not Detected (NotDetected) 07/18/19 00:09 U Benzodiazepines Scrn Not Detected (NotDetected) 07/18/19 00:09 Urine Cocaine Screen Not Detected (NotDetected) 07/18/19 00:09 U Marijuana (THC) Screen Not Detected (NotDetected) 07/18/19 00:09 Vital Signs Temp 98.6 F 07/28/19 05:27 Pulse 84 07/28/19 05:27 Resp 17 07/28/19 05:27 BP 120/72 07/28/19 05:27 Pulse Ox 98 07/28/19 05:27 Patient Condition at Discharge: Stable Plan - Discharge Summary New Discharge Prescriptions: New traZODone HCL [Desyrel] 200 mg PO HS 28 Days tab Nicotine 14Mg/24Hr Patch [Habitrol] 1 patch TRANSDERM DAILY 14 Days patch lamoTRIgine [LaMICtal] 150 mg PO DAILY 28 Days tab Levothyroxine Sodium [Synthroid] 175 mcg PO DAILY 28 Days tablet hydrOXYzine PAMOATE [Vistaril] 25 mg PO BID 28 Days cap Continue INSULIN ASPART (NovoLOG) [NovoLOG (formulary)] 2 - 8 unit SQ AC-TID Ferrous Sulfate 220 mg PO BID INSULIN ASPART (NovoLOG) [NovoLOG (formulary)] See Protocol SQ ACHS Folic Acid 1 mg PO DAILY 28 Days tab Atorvastatin [Lipitor] 20 mg PO HS 28 Days tab Clopidogrel Bisulfate [Plavix] 75 mg PO DAILY 28 Days tab Cholecalciferol [Vitamin D3 (25 Mcg = 1000 Iu)] 5,000 unit PO DAILY 28 Days tab Insulin Glargine [Lantus] 20 unit SQ HS Discontinued Levothyroxine Sodium [Synthroid] 175 mcg PO DAILY Insulin Glargine [Lantus] 20 unit SQ HS Acetaminophen with Codeine [Tylenol w/codeine #3] 1 tab PO Q6H PRN PRN Reason: Pain Discharge Medication List Ferrous Sulfate 220 mg PO BID 07/17/19 [History] INSULIN ASPART (NovoLOG) [NovoLOG (formulary)] 2 - 8 unit SQ AC-TID 07/17/19 [History] INSULIN ASPART (NovoLOG) [NovoLOG (formulary)] See Protocol SQ ACHS 07/17/19 [History] Atorvastatin [Lipitor] 20 mg PO HS 28 Days tab 07/25/19 [Rx] Cholecalciferol [Vitamin D3 (25 Mcg = 1000 Iu)] 5,000 unit PO DAILY 28 Days tab 07/25/19 [Rx] Clopidogrel Bisulfate [Plavix] 75 mg PO DAILY 28 Days tab 07/25/19 [Rx] Folic Acid 1 mg PO DAILY 28 Days tab 07/25/19 [Rx] Levothyroxine Sodium [Synthroid] 175 mcg PO DAILY 28 Days tablet 07/25/19 [Rx] Nicotine 14Mg/24Hr Patch [Habitrol] 1 patch TRANSDERM DAILY 14 Days patch 07/25/19 [Rx] hydrOXYzine PAMOATE [Vistaril] 25 mg PO BID 28 Days cap 07/25/19 [Rx] lamoTRIgine [LaMICtal] 150 mg PO DAILY 28 Days tab 07/25/19 [Rx] traZODone HCL [Desyrel] 200 mg PO HS 28 Days tab 07/25/19 [Rx] Insulin Glargine [Lantus] 20 unit SQ HS 07/27/19 [History] Follow up Appointment(s)/Referral(s): [facility] [Outside] - 07/28/19 9:30 am (Walk in intake ) Mitch Interiano MD [Primary Care Provider] - 1-2 days Patient Instructions/Handouts: How to Stop Smoking (DC), Mood Disorders (DC), Bipolar Disorder (DC), Managing Diabetes During Sick Days (DC), What to Do if Your Blood Sugar is Low (ED), Diabetes and Nutrition (DC) Activity/Diet/Wound Care/Special Instructions: Activity and diet as tolerated. Avoid the use of street drugs and alcohol. Take all medications as prescribed. When you are in need of refills on your medications please contact your medical provider and/or outpatient psychiatrist to have this done. Please go to scheduled outpatient appointment for aftercare. If symptoms return or become worse call the crisis line at and/or go to the nearest emergency room for an evaluation. Discharge Disposition: HOME SELF-CARE
== END 2019-07-28 12:19 | disposition home or self-care (01) | DRG 885 ==
LOC: EC 21:38 → 3MHU 07-18 02:15
PROVIDERS: ADMIT Psychiatry & Neurology Psychiatry; ATTEND Psychiatry & Neurology Psychiatry
DX: F31.30 Bipolar disorder, current episode depressed, mild or moderate severity, unspecified (principal); R45.851 Suicidal ideations; F41.9 Anxiety disorder, unspecified; G47.00 Insomnia, unspecified; F25.9 Schizoaffective disorder, unspecified; F17.200 Nicotine dependence, unspecified, uncomplicated; G62.9 Polyneuropathy, unspecified; I25.10 Atherosclerotic heart disease of native coronary artery without angina pectoris; J44.9 Chronic obstructive pulmonary disease, unspecified; M79.7 Fibromyalgia; R45.850 Homicidal ideations; E87.5 Hyperkalemia; E11.65 Type 2 diabetes mellitus with hyperglycemia; E03.9 Hypothyroidism, unspecified; Z79.02 Long term (current) use of antithrombotics/antiplatelets; Z79.1 Long term (current) use of non-steroidal anti-inflammatories (NSAID); Z79.4 Long term (current) use of insulin; Z79.890 Hormone replacement therapy; Z79.899 Other long term (current) drug therapy; Z81.8 Family history of other mental and behavioral disorders; Z83.3 Family history of diabetes mellitus; Z91.19 Patient's noncompliance with other medical treatment and regimen
CPT/HCPCS: 80048; 80053; 80061; 80306; 82075; 82248; 82947; 83036; 84443; 84484; 85025; 93005; 99285

== ENCOUNTER 2019-08-05 14:42 | Inpatient (IN) | payer MEDICARE, OTHER ==
[2019-08-05 17:09] LABS: Glucose,Whole Blood 280 mg/dL (75-99)
[2019-08-05] MEDS: INSULIN ASPART (NovoLOG) 100 UNIT/ML VIAL SQ SCH ×2 (17:25→20:15)
[2019-08-05 17:35] LABS: HCT 31.2 % (39.0-53.0); HGB 10.6 gm/dL (13.0-17.5); MCH 31.3 pg (25.0-35.0); MCHC 33.9 g/dL (31.0-37.0); MCV 92.4 fL (80.0-100.0); Platelet Count 175 k/uL (150-450); RBC 3.38 m/uL (4.30-5.90); WBC 7.5 k/uL (3.8-10.6)
[2019-08-05 18:00] LABS: Calcium 9.3 mg/dL (8.4-10.2); Potassium 4.7 mmol/L (3.5-5.1)
[2019-08-05 19:59] LABS: Glucose,Whole Blood 331 mg/dL (75-99)
[2019-08-05] MEDS: INSULIN DETEMIR (LEVEMIR) 100 UNIT/ML SYR SQ SCH (20:15)
[2019-08-05] MEDS: ATORVASTATIN 20 MG TAB PO SCH (20:15)
[2019-08-05] MEDS: traZODone HCL 100 MG TAB PO SCH (20:15)
[2019-08-05] MEDS: HYDROcodone/APAP 5-325MG 1 EACH TAB PO PRN (20:15)
[2019-08-06 06:09] LABS: Glucose,Whole Blood 212 mg/dL (75-99)
[2019-08-06] MEDS: LEVOTHYROXINE 88 MCG TAB PO SCH (06:17)
[2019-08-06] MEDS: INSULIN ASPART (NovoLOG) 100 UNIT/ML VIAL SQ SCH ×4 (06:18→20:43)
[2019-08-06] MEDS: FOLIC ACID 1 MG TAB PO SCH (09:26)
[2019-08-06] MEDS: CLOPIDOGREL 75 MG TAB PO SCH (09:26)
[2019-08-06] MEDS: NICOTINE 14MG/24HR PATCH TRANSDERM SCH (09:26)
[2019-08-06] MEDS: lamoTRIgine 100 MG TAB PO SCH (09:26)
[2019-08-06] MEDS: CHOLECALCIFEROL 1,000 UNIT TAB PO SCH (09:27)
[2019-08-06 12:05] LABS: Glucose,Whole Blood 120 mg/dL (75-99)
[2019-08-06 13:42] LABS: Hemoglobin A1C 8.8 % (4.0-6.0)
[2019-08-06 16:57] LABS: Glucose,Whole Blood 151 mg/dL (75-99)
--- NOTE | 2019-08-06 18:55 | P.HPIM ---
History of Present Illness H&P Date: 08/06/19 Chief Complaint: Chest pain Patient is a 49-year-old male with a known history of hypertension, diabetes type 2 non-insulin dependent, COPD, hypothyroidism, depression/schizophrenia history, ongoing nicotine addiction initially presented to [facility] with the complaints of chest pain or shortness of breath. Patient was found have negative serial troponins and EKG. D-dimer is slightly elevated and he had VQ scan showed low probability for PE. Echocardiogram on 08/01/2019 showed mild LVH and ejection fraction 60-65% and normal LV diastolic function. Patient was found have elevated blood sugars in 400s. Patient was hydrated and kidney function improved as well. Patient was started on long-acting insulin and continue with sliding scale. Patient was dehydrated with creatinine level I.7 and being on 61 at that time. Urine culture showed 25-50,000 Proteus mirabilis. Patient was given antibiotics in the form of ceftriaxone. Currently patient denied any complaints of chest pain. Blood sugar is better controlled. Shortness of breath improved as well. Regards obtained from [facility] showed triple-vessel disease. 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 Patient does have a history of depression/schizophrenia. Patient also had recent inpatient psychiatric admission. Patient did have a restraining order from his mother. Currently patient is living in a halfway. Otherwise patient is more awake and oriented. Was to proceed with surgery at reported on. Patient was transferred to [facility] for further evaluation by CT surgery. Review of Systems Constitutional: Patient denies any fever or chills . No generalized weakness or weight loss. Abdomen: Patient denied nausea vomiting and diarrhea and abdominal pain. Occasional chest pains. Cardiovascular: Patient denies any chest pain or short of breath no palpitations. Respiratory: patient denied any cough is from production. No shortness of breath Neurologic: Patient denied any numbness or tingling headache. Musculoskeletal: Patient denies any complaints of joint swelling or deformity. Skin: Negative Psychiatric: Negative Endocrine: No heat or cold intolerance. No recent weight gain. Genitourinary: No dysuria or hematuria. All other 14 point ROS negative except the above Past Medical History Past Medical History: COPD, Diabetes Mellitus, Thyroid Disorder Additional Past Medical History / Comment(s): fibromyalgia, peripheral neuropathy. schizo parnoid, manic depressive. History of Any Multi-Drug Resistant Organisms: None Reported Past Surgical History: Hernia Repair Past Anesthesia/Blood Transfusion Reactions: No Reported Reaction Past Psychological History: Depression, Schizophrenia Smoking Status: Current every day smoker Past Alcohol Use History: Occasional Past Drug Use History: None Reported - Past Family History Mother Family Medical History: No Reported History, Unable to Obtain Father Family Medical History: Diabetes Mellitus Brother(s) Family Medical History: No Reported History Daughter(s) Family Medical History: No Reported History Medications and Allergies Home Medications Medication Instructions Recorded Confirmed Type INSULIN ASPART (NovoLOG) [NovoLOG See Protocol SQ ACHS 07/17/19 08/05/19 History (formulary)] Cholecalciferol [Vitamin D3 (25 5,000 unit PO DAILY 28 Days tab 07/25/19 08/05/19 Rx Mcg = 1000 Iu)] Clopidogrel Bisulfate [Plavix] 75 mg PO DAILY 28 Days tab 07/25/19 08/05/19 Rx Folic Acid 1 mg PO DAILY 28 Days tab 07/25/19 08/05/19 Rx Levothyroxine Sodium [Synthroid] 175 mcg PO DAILY 28 Days tablet 07/25/19 08/05/19 Rx Nicotine 14Mg/24Hr Patch [Habitrol] 1 patch TRANSDERM DAILY 14 Days 07/25/19 08/05/19 Rx patch lamoTRIgine [LaMICtal] 150 mg PO DAILY 28 Days tab 07/25/19 08/05/19 Rx traZODone HCL [Desyrel] 200 mg PO HS 28 Days tab 07/25/19 08/05/19 Rx Insulin Glargine [Lantus] 20 unit SQ HS 07/27/19 08/05/19 History Albuterol Sulfate [Ventolin HFA] 1 - 2 puff INHALATION RT-QID PRN 08/05/19 08/05/19 History Atorvastatin [Lipitor] 20 mg PO DAILY 08/05/19 08/05/19 History Glimepiride [Amaryl] 4 mg PO AC-[id number] 08/05/19 08/05/19 History hydrOXYzine PAMOATE [Vistaril] 25 mg PO BID PRN 08/05/19 08/05/19 History metFORMIN HCL [Glucophage] 1,000 mg PO BID 08/05/19 08/05/19 History Allergies Allergy/AdvReac Type Severity Reaction Status Date / Time benztropine [From Cogentin] Allergy Unknown Verified 08/05/19 18:34 ferrous sulfate Allergy Nausea & Verified 08/05/19 18:34 Vomiting SODIUM CHANNEL BLOCKERS AdvReac Severe Unknown Uncoded 08/05/19 18:34 Physical Exam Vitals: Vital Signs Temp Pulse Resp BP Pulse Ox 08/06/19 15:20 73 16 166/77 99 08/06/19 12:00 71 16 147/82 100 08/06/19 07:50 98.2 F 71 16 96/56 98 08/06/19 03:15 98.1 F 69 16 120/57 99 08/05/19 23:00 98.4 F 70 16 97/61 98 08/05/19 19:15 97.4 F L 65 16 146/76 99 Intake and Output 08/06/19 08/06/19 08/06/19 06:59 14:59 22:59 Intake Total 600 240 Output Total 400 200 Balance -400 400 240 Intake: Oral 600 240 Output: Urine 400 200 Other: # Voids 0 Weight 70.5 kg 70.5 kg PHYSICAL EXAMINATION: Patient is lying in the bed comfortably, no acute distress, awake alert and oriented.. HEENT: Normocephalic. Neck is supple. Pupils reactive. Nostrils clear. Oral cavity is moist. Ears reveal no drainage. Neck reveals no JVD, carotid bruits, or thyromegaly. CHEST EXAMINATION: Trachea is central. Symmetrical expansion. Lung hauser clear to auscultation and percussion. CARDIAC: Normal S1, S2 with no gallops. No murmurs ABDOMEN: Soft. Bowel sounds normal. No organomegaly. No abdominal bruits. Extremities: reveal no edema. No clubbing or cyanosis Neurologically awake, alert, oriented x3 with well-coordinated movements. No focal deficits noted Skin: No rash or skin lesions. Psychiatric: Coperative. Nonsuicidal Musculoskeletal: No joint swelling or deformity. Normal range of motion. Results CBC & Chem 7: 08/05/19 17:21 08/05/19 17:21 Labs: Abnormal Lab Results - Last 24 Hours (Table) 08/05/19 08/05/19 08/06/19 Range/Units 17:21 19:58 06:08 POC Glucose (mg/dL) 331 H 212 H (75-99) mg/dL Hemoglobin A1c 8.8 H (4.0-6.0) % 08/06/19 08/06/19 Range/Units 11:59 16:50 POC Glucose (mg/dL) 120 H 151 H (75-99) mg/dL Hemoglobin A1c (4.0-6.0) % Thrombosis Risk Factor Assmnt - DVT/VTE Prophylaxis DVT/VTE Prophylaxis: Pharmacologic Prophylaxis ordered, Mechanical Prophylaxis ordered - Choose All That Apply Each Factor Represents 1 point: Age 41-60 years Other Risk Factors: No Other congenital or acquired thrombophilia - If yes, enter type in comment: No Thrombosis Risk Factor Assessment Total Risk Factor Score: 1 Thrombosis Risk Factor Assessment Level: Low Risk Assessment and Plan Assessment: Chest pain. Rule out acute coronary syndrome. Triple-vessel coronary artery disease. CABG was recommended previously at [facility]. Acute kidney injury likely prerenal and possible underlying CK D stage III. Creatinine 1.5 Diabetes type 2 uncontrolled with his B A1c 8.8. Recently started on Levemir. COPD not in exacerbation Hypothyroidism Hypertension controlled Depression and schizophrenia history Ongoing nicotine addiction DVT prophylaxis with heparin subcu Plan: Patient will be continued on telemetry monitoring. Encourage oral intake and follow-up renal function. Patient was started on Levemir 20 units at bedtime and insulin sliding scale or better blood sugar control. We will add preprandial insulin. Continue with Plavix and statins. Cardiology and CT surgery evaluation. Further recommendations based on the clinical course. Smoking cessation has been counseled. Time with Patient: Greater than 30
[2019-08-06 20:09] LABS: Glucose,Whole Blood 262 mg/dL (75-99)
[2019-08-06] MEDS: traZODone HCL 100 MG TAB PO SCH (20:43)
[2019-08-06] MEDS: ATORVASTATIN 20 MG TAB PO SCH (20:43)
[2019-08-06] MEDS: INSULIN DETEMIR (LEVEMIR) 100 UNIT/ML SYR SQ SCH (20:43)
[2019-08-07 06:22] LABS: Glucose,Whole Blood 109 mg/dL (75-99)
[2019-08-07] MEDS: INSULIN ASPART (NovoLOG) 100 UNIT/ML VIAL SQ SCH ×5 (06:22→20:38)
[2019-08-07] MEDS: LEVOTHYROXINE 88 MCG TAB PO SCH (06:23)
[2019-08-07] MEDS: lamoTRIgine 100 MG TAB PO SCH (08:51)
[2019-08-07] MEDS: CHOLECALCIFEROL 1,000 UNIT TAB PO SCH (08:51)
[2019-08-07] MEDS: CLOPIDOGREL 75 MG TAB PO SCH (08:51)
[2019-08-07] MEDS: NICOTINE 14MG/24HR PATCH TRANSDERM SCH (08:51)
[2019-08-07] MEDS: FOLIC ACID 1 MG TAB PO SCH (08:51)
--- NOTE | 2019-08-07 10:42 | P.GSCN ---
History of Present Illness Consult date: 08/07/19 Reason for Consult: Triple-vessel coronary artery disease. Requesting physician: Ashly Flood History of present illness: This is a 49-year-old gentleman who appears older than his stated age. He does not follow with a primary care physician on a regular basis. Past medical history significant for triple vessel coronary artery disease, myocardial infarction in 2018, CVA, hypertension, diabetes mellitus type 2 with an admission hemoglobin A1c of 8.9, hypothyroidism chronic obstructive pulmonary disease, depression/schizophrenia, chronic and ongoing tobacco dependence, obstructive sleep apnea, mental disability, wheelchair-bound, homeless and history of illicit drug use. Patient recently presented to [facility] with complaints of chest pain, shortness of breath, nausea and vomiting chunks of blood according to the patient. Denies any recent fevers, chills, palpitations, presyncope or syncope. Due to the patient's presenting symptoms a VQ scan was done at [facility] which showed low probability for pulmonary embolus. A 2-D echocardiogram was also completed on 08/01/2018 which showed him to have mild left ventricular hypertrophy and an ejection fraction of 60-65% with normal LV diastolic function. Lab results at [facility] showed negative serial troponins, a hemoglobin A1c of 8.9, blood glucose 349, BUN 61 and creatinine 1.7. The patient also has a history of undergoing a heart catheterization in January 2018 at [facility] which demonstrated triple-vessel coronary artery disease. Due to the patient's presenting symptoms and history of coronary artery disease consult was placed to Dr. Afshin Israel from cardiothoracic surgery for further evaluation and treatment recommendations. Review of Systems A 14 point review of systems was completed and was negative except as mentioned in HPI. Past Medical History Past Medical History: Coronary Artery Disease (CAD), COPD, CVA/TIA, Diabetes Mellitus, Hyperlipidemia, Myocardial Infarction (MS), Osteoarthritis (OA), Sleep Apnea/CPAP/BIPAP, Thyroid Disorder Additional Past Medical History / Comment(s): fibromyalgia, peripheral neuropathy. schizo parnoid, manic depressive. Last Myocardial Infarction Date:: The patient reports he had an myocardial infarction in 2018 History of Any Multi-Drug Resistant Organisms: None Reported Past Surgical History: Heart Catheterization, Hernia Repair Additional Past Surgical History / Comment(s): Surgery completed for obstructive sleep apnea. Past Anesthesia/Blood Transfusion Reactions: No Reported Reaction Past Psychological History: Depression, Schizophrenia Smoking Status: Current every day smoker Past Alcohol Use History: Occasional Past Drug Use History: Cocaine, Heroin - Past Family History Mother Additional Family Medical History / Comment(s): Crohn's disease, colitis and arthritis. Father Family Medical History: Diabetes Mellitus Brother(s) Family Medical History: No Reported History Daughter(s) Family Medical History: No Reported History Medications and Allergies Home Medications Medication Instructions Recorded Confirmed Type INSULIN ASPART (NovoLOG) [NovoLOG See Protocol SQ ACHS 07/17/19 08/05/19 History (formulary)] Cholecalciferol [Vitamin D3 (25 5,000 unit PO DAILY 28 Days tab 07/25/19 08/05/19 Rx Mcg = 1000 Iu)] Clopidogrel Bisulfate [Plavix] 75 mg PO DAILY 28 Days tab 07/25/19 08/05/19 Rx Folic Acid 1 mg PO DAILY 28 Days tab 07/25/19 08/05/19 Rx Levothyroxine Sodium [Synthroid] 175 mcg PO DAILY 28 Days tablet 07/25/19 08/05/19 Rx Nicotine 14Mg/24Hr Patch [Habitrol] 1 patch TRANSDERM DAILY 14 Days 07/25/19 08/05/19 Rx patch lamoTRIgine [LaMICtal] 150 mg PO DAILY 28 Days tab 07/25/19 08/05/19 Rx traZODone HCL [Desyrel] 200 mg PO HS 28 Days tab 07/25/19 08/05/19 Rx Insulin Glargine [Lantus] 20 unit SQ HS 07/27/19 08/05/19 History Albuterol Sulfate [Ventolin HFA] 1 - 2 puff INHALATION RT-QID PRN 08/05/19 08/05/19 History Atorvastatin [Lipitor] 20 mg PO DAILY 08/05/19 08/05/19 History Glimepiride [Amaryl] 4 mg PO AC-BRKFST 08/05/19 08/05/19 History hydrOXYzine PAMOATE [Vistaril] 25 mg PO BID PRN 08/05/19 08/05/19 History metFORMIN HCL [Glucophage] 1,000 mg PO BID 08/05/19 08/05/19 History Allergies Allergy/AdvReac Type Severity Reaction Status Date / Time benztropine [From Cogentin] Allergy Unknown Verified 08/05/19 18:34 ferrous sulfate Allergy Nausea & Verified 08/05/19 18:34 Vomiting SODIUM CHANNEL BLOCKERS AdvReac Severe Unknown Uncoded 08/05/19 18:34 Surgical - Exam Vital Signs Pulse Resp BP Pulse Ox 74 16 150/83 100 08/05/19 17:33 08/05/19 17:33 08/05/19 17:33 08/05/19 17:33 - General no distress, no pain, chronically ill - Eyes PERRL, normal ocular movement - ENT normal pinna, normal nares, normal mucosa, no hearing loss, no congestion, poor fpc - Neck Neck is supple, no lymphadenopathy. no masses, no bruits, trachea midline, no venous distension - Respiratory Lung sounds essentially clear throughout. Respirations are symmetrical and nonlabored. No wheezes, rhonchi or crackles. - Cardiovascular Regular rhythm and rate. S1 and S2 present, negative for S3, gallop or murmur. No edema present. - Abdomen Abdomen is soft, nontender and nondistended. Active bowel sounds present all 4 abdominal quadrants. No guarding rigidity. No organomegaly. - Genitourinary Deferred - Rectum Deferred - Integumentary no rash, no growths, no abnormal pigmentation - Neurologic Awake and alert, oriented [address] He didn't know whether that month was June or July. Cranial nerves II through XII intact. - Musculoskeletal Wheelchair-bound. - Psychiatric oriented to person, oriented to place, speech is normal, memory intact Results - Labs 08/05/19 17:21 08/05/19 17:21 Abnormal Lab Results - Last 24 Hours (Table) 08/05/19 08/06/19 08/06/19 Range/Units 17:21 11:59 16:50 POC Glucose (mg/dL) 120 H 151 H (75-99) mg/dL Hemoglobin A1c 8.8 H (4.0-6.0) % 08/06/19 08/07/19 Range/Units 20:05 06:21 POC Glucose (mg/dL) 262 H 109 H (75-99) mg/dL Hemoglobin A1c (4.0-6.0) % Diabetes panel 08/05/19 Range/Units 17:21 Hemoglobin A1c 8.8 H (4.0-6.0) % Assessment and Plan Assessment: 1. Triple-vessel coronary artery disease. Heart catheterization completed in January 2018 at [facility] 2. Chest pain, negative troponins 3. Acute kidney injury with an admission BUN of 61 and creatinine 1.7 4. Uncontrolled diabetes mellitus type 2 with an admission hemoglobin A1c of 8.9 5. COPD 6. Hypertension 7. Depression/schizophrenia history 8. History of CVA, on Plavix 9. History of myocardial infarction in 2018 10. Chronic ongoing nicotine dependence Plan: The patient was seen and examined at his bedside on the cardiac stepdown unit. He is in no acute distress. His chart and diagnostics were reviewed. His case was discussed with Dr. Afshin Israel from cardiothoracic surgery in detail. At this time no surgical intervention is recommended as the patient is a poor candidate for surgery and would be considered a high risk patient for myocardial revascularization surgery. Optimize medical management. Discussed with the patient the importance of smoking cessation. Medical management and other comorbidities per primary care service. Thank you Dr. Flood for this consult and look forward to working with you in the care of your patient. Time with Patient: Greater than 30
[2019-08-07 12:22] LABS: Glucose,Whole Blood 134 mg/dL (75-99)
[2019-08-07 17:11] LABS: Glucose,Whole Blood 177 mg/dL (75-99)
[2019-08-07 19:52] LABS: Glucose,Whole Blood 191 mg/dL (75-99)
[2019-08-07] MEDS: ATORVASTATIN 20 MG TAB PO SCH (20:39)
[2019-08-07] MEDS: traZODone HCL 100 MG TAB PO SCH (20:39)
[2019-08-07] MEDS ORDERED: INSULIN DETEMIR (LEVEMIR) 100 UNIT/ML SYR SQ SCH (21:00)
[2019-08-08 06:06] LABS: Glucose,Whole Blood 183 mg/dL (75-99)
[2019-08-08 06:57] LABS: Glucose,Whole Blood 194 mg/dL (75-99)
[2019-08-08] MEDS: LEVOTHYROXINE 88 MCG TAB PO SCH (07:11)
[2019-08-08] MEDS: INSULIN ASPART (NovoLOG) 100 UNIT/ML VIAL SQ SCH ×7 (07:14→21:19)
[2019-08-08] MEDS: CLOPIDOGREL 75 MG TAB PO SCH (08:11)
[2019-08-08] MEDS: lamoTRIgine 100 MG TAB PO SCH (08:11)
[2019-08-08] MEDS: NICOTINE 14MG/24HR PATCH TRANSDERM SCH (08:11)
[2019-08-08] MEDS: CHOLECALCIFEROL 1,000 UNIT TAB PO SCH (08:11)
[2019-08-08] MEDS: FOLIC ACID 1 MG TAB PO SCH (08:11)
--- NOTE | 2019-08-08 10:36 | P.PN ---
Subjective Progress Note Date: 08/08/19 Principal diagnosis: Triple-vessel coronary artery disease, acute kidney injury. Previous medical history of myocardial infarction, CVA, hypertension, type 2 diabetes with hemoglobin A1c 8.9%, hypothyroidism, COPD, depression/schizophrenia, current tobacco dependence, obstructive sleep apnea without CPAP use, debility as he is wheelchair bound, homelessness, and history of illicit drug use. The patient is currently laying in bed in no acute distress. Does complain of intermittent chest pain, no chest pain currently. Does complain of ongoing progressive shortness of breath, not currently in distress. The patient was seen and examined this morning with Dr. Martini, no new concerns. Objective - Vital Signs Vital signs: Vital Signs Temp 98.1 F 08/08/19 07:33 Pulse 68 08/08/19 07:33 Resp 16 08/08/19 07:33 BP 93/53 08/08/19 07:33 Pulse Ox 95 08/08/19 07:33 Intake & Output 08/07/19 08/08/19 08/08/19 18:59 06:59 18:59 Intake Total 960 660 240 Output Total 1400 800 Balance -440 -140 240 Weight 75.8 kg Intake: Oral 960 660 240 Output: Urine 1400 800 - Constitutional General appearance: Present: cooperative, no acute distress - Respiratory Details: Lungs sounds clear bilaterally. Respirations even, nonlabored. Currently on room air with oxygen saturation 98%. - Cardiovascular Details: S1, S2 present. Regular rate and rhythm, sinus rhythm on telemetry. Palpable peripheral pulses bilaterally. No edema present. No calf pain or tenderness noted. - Gastrointestinal Gastrointestinal Comment(s): Abdomen soft, nontender, nondistended. Active bowel sounds present 4 quadrants. Tolerating diet. - Genitourinary Genitourinary Comment(s): Incontinent of urine. - Integumentary Integumentary Comment(s): Skin is warm and dry. - Neurologic Neurologic: Present: CNII-XII intact - Musculoskeletal Musculoskeletal Comment(s): Wheelchair dependent Musculoskeletal: Present: generalized weakness, strength equal bilaterally - Psychiatric Psychiatric: Present: A&O x's 3 - Allied health notes Allied health notes reviewed: nursing - Labs CBC & Chem 7: 08/05/19 17:21 08/05/19 17:21 Labs: Abnormal Lab Results - Last 24 Hours (Table) 08/07/19 08/07/19 08/07/19 Range/Units 12:19 17:08 19:51 POC Glucose (mg/dL) 134 H 177 H 191 H (75-99) mg/dL 08/08/19 08/08/19 Range/Units 06:04 06:48 POC Glucose (mg/dL) 183 H 194 H (75-99) mg/dL Assessment and Plan Assessment: 1. Triple-vessel coronary artery disease with previous myocardial infarction in 2018. Heart catheterization completed in January 2018 at [facility] 2. Intermittent chest pain, negative troponins 3. Acute kidney injury 4. Diabetes mellitus type 2, hemoglobin A1c of 8.9 5. COPD 6. Hypertension 7. Depression/schizophrenia 8. History of CVA, currently on Plavix 9. Chronic ongoing nicotine dependence 10. Currently homeless Plan: 1. Continue Plavix, Lipitor. Recommend maximizing medical management with aspirin and beta mila therapy 2. No surgical intervention recommended, patient is a poor candidate and significantly high risk for surgery. 3. Recommend cardiology input for medical therapy versus stenting 4. Encourage smoking cessation. 5. Management of other comorbidities per primary care service 6. Will see on an as-needed basis. Please contact us with further questions. Time with Patient: Greater than 30
[2019-08-08 12:11] LABS: Glucose,Whole Blood 206 mg/dL (75-99)
--- NOTE | 2019-08-08 16:56 | P.PN ---
Subjective Progress Note Date: 08/08/19 Principal diagnosis: Patient is a 49-year-old male with a known history of hypertension, diabetes type 2 non-insulin dependent, COPD, hypothyroidism, depression/schizophrenia history, ongoing nicotine addiction initially presented to [facility] with the complaints of chest pain or shortness of breath. Patient was found have negative serial troponins and EKG. D-dimer is slightly elevated and he had VQ scan showed low probability for PE. Echocardiogram on 08/01/2019 showed mild LVH and ejection fraction 60-65% and normal LV diastolic function. Patient was found have elevated blood sugars in 400s. Patient was hydrated and kidney function improved as well. Patient was started on long-acting insulin and continue with sliding scale. Patient was dehydrated with creatinine level I.7 and being on 61 at that time. Urine culture showed 25-50,000 Proteus mirabilis. Patient was given antibiotics in the form of ceftriaxone. Currently patient denied any complaints of chest pain. Blood sugar is better controlled. Shortness of breath improved as well. Records obtained from [facility] showed triple-vessel disease. Patient was supposed to follow with his skull grinder after better glycemic control. Patient does have a history of depression/schizophrenia. Patient also had recent inpatient psychiatric admission. Patient did have a restraining order from his mother. Currently patient is living in a detention. Otherwise patient is more awake and oriented. Was to proceed with surgery at reported on. Patient was transferred to [facility] for further evaluation by CT surgery. 08/08/2019 Patient is sitting up in the chair in no acute distress with no acute overnight issues. Patient was seen by cardiothoracic surgery and recommending maximizing medical management. Cardiology was consulted and is pending at this time. Patient denies any chest pain or palpitations at this time. Patient continues to have shortness of breath but is slightly improved from yesterday. Patient states he is unsure why he is not a surgical candidate for his triple-vessel coronary artery disease and is awaiting for cardiology at this time. Patient states that most of his heart care was done at [facility]. Patient has been afebrile. Patient denies any nausea or vomiting and is tolerating diet. Currently patient's blood sugars remain slightly elevated and adjustments at that may to the insulins and will continue to monitor closely. When discussing with patient about possible discharge plans he states that he would prefer a re hab center if possible as he is currently homeless and unable to go back to the detention. Guarded prognosis. Case management and health social work professor following. Objective - Vital Signs Vital signs: Vital Signs Temp 98.1 F 08/08/19 07:33 Pulse 70 08/08/19 11:28 Resp 16 08/08/19 11:28 BP 91/60 08/08/19 11:28 Pulse Ox 98 08/08/19 11:28 Intake & Output 08/07/19 08/08/19 08/08/19 18:59 06:59 18:59 Intake Total 960 660 480 Output Total 1400 800 450 Balance -440 -140 30 Weight 75.8 kg Intake: Oral 960 660 480 Output: Urine 1400 800 450 - Exam Patient is sitting up in the chair comfortably, no acute distress, awake alert and oriented.. HEENT: Normocephalic. Neck is supple. Pupils reactive. Nostrils clear. Oral cavity is moist. Ears reveal no drainage. Neck reveals no JVD, carotid bruits, or thyromegaly. CHEST EXAMINATION: Trachea is central. Symmetrical expansion. Lung hauser clear to auscultation and percussion. CARDIAC: Normal S1, S2 with no gallops. No murmurs ABDOMEN: Soft. Bowel sounds normal. No organomegaly. No abdominal bruits. Extremities: reveal no edema. No clubbing or cyanosis Neurologically awake, alert, oriented x3 with well-coordinated movements. No focal deficits noted Skin: No rash or skin lesions. Psychiatric: Cooperative. Non-suicidal Musculoskeletal: No joint swelling or deformity. Normal range of motion. - Labs CBC & Chem 7: 08/05/19 17:21 08/05/19 17:21 Labs: Abnormal Lab Results - Last 24 Hours (Table) 08/07/19 08/07/19 08/08/19 Range/Units 17:08 19:51 06:04 POC Glucose (mg/dL) 177 H 191 H 183 H (75-99) mg/dL 08/08/19 08/08/19 Range/Units 06:48 12:06 POC Glucose (mg/dL) 194 H 206 H (75-99) mg/dL Assessment and Plan Assessment: Chest pain. Rule out acute coronary syndrome. Triple-vessel coronary artery disease. CABG was recommended previously at [facility]. Acute kidney injury likely prerenal and possible underlying CK D stage III. Creatinine 1.5 Diabetes type 2 uncontrolled with his B A1c 8.8. Recently started on Levemir. COPD not in exacerbation Hypothyroidism Hypertension controlled Depression and schizophrenia history Ongoing nicotine addiction DVT prophylaxis with heparin subcu Recommendations and discussion: Recommend continue current medications, management, and symptomatic treatment. Cardiology was consulted and is pending at this time. Adjustments have been made to his insulin and will continue to monitor closely. Further recommendations to follow. Guarded prognosis. Case management and health social work professor following for possible placement upon discharge as patient is currently homeless. Smoking cessation has been counseled.
[2019-08-08 16:58] LABS: Glucose,Whole Blood 190 mg/dL (75-99)
[2019-08-08 20:47] LABS: Glucose,Whole Blood 191 mg/dL (75-99)
[2019-08-08] MEDS: ATORVASTATIN 20 MG TAB PO SCH (21:19)
[2019-08-08] MEDS: traZODone HCL 100 MG TAB PO SCH (21:19)
[2019-08-08] MEDS: INSULIN DETEMIR (LEVEMIR) 100 UNIT/ML SYR SQ SCH (21:26)
[2019-08-09 06:26] LABS: Basophils # (A) 0.1 k/uL (0-0.2); Basophils % (A) 1 %; Eosinophils # (A) 0.4 k/uL (0-0.7); Eosinophils % (A) 5 %; HCT 33.4 % (39.0-53.0); HGB 11.3 gm/dL (13.0-17.5); Lymphocytes % (A) 26 %; MCH 30.9 pg (25.0-35.0); MCHC 33.7 g/dL (31.0-37.0); MCV 91.5 fL (80.0-100.0); Mean Platelet Volume 8.1; Monocytes # (A) 0.6 k/uL (0-1.0); Monocytes % (A) 7 %; Neutrophils # (A) 4.6 k/uL (1.3-7.7); Neutrophils % (A) 59 %; Platelet Count 182 k/uL (150-450); RBC 3.66 m/uL (4.30-5.90); RDW 14.2 % (11.5-15.5); WBC 7.7 k/uL (3.8-10.6)
[2019-08-09 06:38] LABS: Calcium 9.5 mg/dL (8.4-10.2); Potassium 4.5 mmol/L (3.5-5.1)
[2019-08-09] MEDS: LEVOTHYROXINE 88 MCG TAB PO SCH (06:40)
[2019-08-09 07:00] LABS: Glucose,Whole Blood 129 mg/dL (75-99)
[2019-08-09] MEDS: INSULIN ASPART (NovoLOG) 100 UNIT/ML VIAL SQ SCH ×7 (07:00→20:26)
[2019-08-09] MEDS: CLOPIDOGREL 75 MG TAB PO SCH (08:20)
[2019-08-09] MEDS: NICOTINE 14MG/24HR PATCH TRANSDERM SCH (08:20)
[2019-08-09] MEDS: CHOLECALCIFEROL 1,000 UNIT TAB PO SCH (08:20)
[2019-08-09] MEDS: FOLIC ACID 1 MG TAB PO SCH (08:21)
[2019-08-09] MEDS: lamoTRIgine 100 MG TAB PO SCH (08:21)
[2019-08-09 11:58] LABS: Glucose,Whole Blood 119 mg/dL (75-99)
[2019-08-09] MEDS: SODIUM CHLORIDE 0.9% 1,000 ML IV SCH ×2 (12:27→23:11)
--- NOTE | 2019-08-09 16:12 | P.PN ---
Subjective Progress Note Date: 08/09/19 6 is a 49-year-old gentleman with history of diabetes, kidney disease, COPD, sleep apnea, nicotine dependence, hypertension, hyperlipidemia, hypothyroidism, history of prior CVA, mental disability who is wheelchair bound, presented to [facility] with symptoms of chest discomfort and was seen there in consultation by Dr. kalen Joseph. Patient did undergo a cardiac catheterization in January 2018 which revealed a 90% mid LAD stenosis, 60% proximal LAD stenosis and an 80% distal LAD stenosis, 90% first diagonal 95 second diagonal 95% of the circumflex, 90% of the first obtuse marginal, 95% of an ostial lesion in that vessel, 65% stenosis in the proximal RCA and 95 in the distal RCA. Patient was transferred here from [facility] to be seen in consultation by cardiothoracic surgery regarding possible bypass surgery. While at [facility] patient did undergo VQ scan which was low probability for pulmonary embolism. Patient was seen in consultation by cardiothoracic surgery, case was discussed in detail with Dr. Dustin Israel, who felt that at this time no surgical intervention is recommended as the patient is a poor candidate for surgery and would be considered high risk for revascularization surgery. Medical therapy was advised. He was seen and examined this morning, complained of some discomfort in his mid epigastric up into the upper chest area which she states has been constant since he presented to [facility]. His EKG shows a normal sinus rhythm with no acute changes. Blood pressure 124/70 with a heart rate in the 60s, 99% on room air. White blood cell count 7.7, hemoglobin 11.3, platelet count 182. Sodium 138, potassium 4.5, BUN 36, creatinine 1.4. Troponin negative. Objective - Vital Signs Vital signs: Vital Signs Temp 97.5 F L 08/09/19 11:10 Pulse 67 08/09/19 11:10 Resp 18 08/09/19 11:10 BP 124/73 08/09/19 11:10 Pulse Ox 99 08/09/19 11:10 Intake & Output 08/08/19 08/09/19 08/09/19 18:59 06:59 18:59 Intake Total 720 360 Output Total 675 650 800 Balance 45 -650 -440 Weight 75.7 kg Intake: Oral 720 360 Output: Urine 675 650 800 Other: Voiding Method Urinal # Voids 0 # Bowel Movements 0 - Exam PHYSICAL EXAMINATION: GENERAL: 89-year-old female gentleman in no acute distress at the time of my examination HEENT: Head is atraumatic, normocephalic. Pupils equal, round. Sclera anicteric. Conjunctiva are clear. Mucous membranes of the mouth are moist. Neck is supple. There is no elevated jugular venous pressure. No carotid bruit is heard. HEART EXAMINATION: Heart S1, S2 normal. No murmur or gallop heard. CHEST EXAMINATION: Lungs are clear to auscultation and precussion. No chest wall tenderness is noted on palpation or with deep breathing. ABDOMEN: Soft, nontender. Bowel sounds are heard. No organomegaly noted. EXTREMITIES: 2+ peripheral pulses with no evidence of peripheral edema and no calf tenderness noted. Patient does have swelling of the right knee with disfigurement of the lower leg from a prior knee surgery, patient states he does require a subsequent surgery. NEUROLOGIC patient is awake, alert and oriented 3 . . - Labs CBC & Chem 7: 08/09/19 06:01 08/09/19 06:01 Labs: Abnormal Lab Results - Last 24 Hours (Table) 08/08/19 08/08/19 08/09/19 Range/Units 16:55 20:45 06:01 RBC 3.66 L (4.30-5.90) m/uL Hgb 11.3 L (13.0-17.5) gm/dL Hct 33.4 L (39.0-53.0) % BUN (9-20) mg/dL Creatinine (0.66-1.25) mg/dL Glucose (74-99) mg/dL POC Glucose (mg/dL) 190 H 191 H (75-99) mg/dL 08/09/19 08/09/19 08/09/19 Range/Units 06:01 06:57 11:52 RBC (4.30-5.90) m/uL Hgb (13.0-17.5) gm/dL Hct (39.0-53.0) % BUN 36 H (9-20) mg/dL Creatinine 1.49 H (0.66-1.25) mg/dL Glucose 120 H (74-99) mg/dL POC Glucose (mg/dL) 129 H 119 H (75-99) mg/dL Assessment and Plan Plan: Assessment and plan #1 chest pain in a patient with known multivessel coronary artery disease and prior CA in 2018 #2 acute injury #3 diabetes #4 COPD #5 hypertension #6 hyperlipidemia #7 depression and schizophrenia #8 history of CVA #9 nicotine dependence #10 currently homeless Plan We will obtain an echocardiogram with Doppler study if one hasn't recently been done at [facility]. Continue maximal medical therapy at this time, we will also get a CD of the patient's cardiac catheterization performed in [address] Mcarthur. Further recommendations to follow. DNP note has been reviewed, I agree with a documented findings and plan of care. Patient was seen and examined.
[2019-08-09 16:48] LABS: Glucose,Whole Blood 195 mg/dL (75-99)
--- NOTE | 2019-08-09 20:12 | P.PN ---
Subjective Progress Note Date: 08/09/19 Principal diagnosis: Patient is a 49-year-old male with a known history of hypertension, diabetes type 2 non-insulin dependent, COPD, hypothyroidism, depression/schizophrenia history, ongoing nicotine addiction initially presented to [facility] with the complaints of chest pain or shortness of breath. Patient was found have negative serial troponins and EKG. D-dimer is slightly elevated and he had VQ scan showed low probability for PE. Echocardiogram on 08/01/2019 showed mild LVH and ejection fraction 60-65% and normal LV diastolic function. Patient was found have elevated blood sugars in 400s. Patient was hydrated and kidney function improved as well. Patient was started on long-acting insulin and continue with sliding scale. Patient was dehydrated with creatinine level I.7 and being on 61 at that time. Urine culture showed 25-50,000 Proteus mirabilis. Patient was given antibiotics in the form of ceftriaxone. Currently patient denied any complaints of chest pain. Blood sugar is better controlled. Shortness of breath improved as well. Records obtained from [facility] showed triple-vessel disease. Patient was supposed to follow with his machine operator after better glycemic control. Patient does have a history of depression/schizophrenia. Patient also had recent inpatient psychiatric admission. Patient did have a restraining order from his mother. Currently patient is living in a fci. Otherwise patient is more awake and oriented. Was to proceed with surgery at reported on. Patient was transferred to [facility] for further evaluation by CT surgery. 08/08/2019 Patient is sitting up in the chair in no acute distress with no acute overnight issues. Patient was seen by cardiothoracic surgery and recommending maximizing medical management. Cardiology was consulted and is pending at this time. Patient denies any chest pain or palpitations at this time. Patient continues to have shortness of breath but is slightly improved from yesterday. Patient states he is unsure why he is not a surgical candidate for his triple-vessel coronary artery disease and is awaiting for cardiology at this time. Patient states that most of his heart care was done at [facility]. Patient has been afebrile. Patient denies any nausea or vomiting and is tolerating diet. Currently patient's blood sugars remain slightly elevated and adjustments at that may to the insulins and will continue to monitor closely. When discussing with patient about possible discharge plans he states that he would prefer a re hab center if possible as he is currently homeless and unable to go back to the fci. Guarded prognosis. Case management and rn social services following. 08/09/2019 Patient is lying in bed in no acute distress with no acute overnight issues. Patient was seen by cardiology today and is recommending obtaining an echo if not previously done at [facility]. Patient currently denies any shortness of breath or palpitations at this time. Patient has intermittent chest pain and tenderness located in the midsternal area. Patient denies any nausea or vomiting and has been tolerating diet. Patient records from previous admissions are being reviewed currently to determine treatment plan. Patient was seen by cardiothoracic surgery and is not a surgical candidate at this time and significantly high risk for surgery. Will continue to monitor closely. Case management and social work are following to determine possible placement upon discharge as he is currently homeless. Objective - Vital Signs Vital signs: Vital Signs Temp 97.5 F L 08/09/19 08:15 Pulse 71 08/09/19 08:15 Resp 18 08/09/19 08:15 BP 93/63 08/09/19 08:15 Pulse Ox 99 08/09/19 08:15 Intake & Output 08/08/19 08/09/19 08/09/19 18:59 06:59 18:59 Intake Total 720 180 Output Total 675 650 800 Balance 45 -650 -620 Weight 75.7 kg Intake: Oral 720 180 Output: Urine 675 650 800 Other: Voiding Method Urinal # Bowel Movements 0 - Exam Patient is lying in bed comfortably, no acute distress, awake alert and oriented.. HEENT: Normocephalic. Neck is supple. Pupils reactive. Nostrils clear. Oral cavity is moist. Ears reveal no drainage. Neck reveals no JVD, carotid bruits, or thyromegaly. CHEST EXAMINATION: Trachea is central. Symmetrical expansion. Lung hauser clear to auscultation and percussion. CARDIAC: Normal S1, S2 with no gallops. No murmurs ABDOMEN: Soft. Bowel sounds normal. No organomegaly. No abdominal bruits. Extremities: reveal no edema. No clubbing or cyanosis Neurologically awake, alert, oriented x3 with well-coordinated movements. No focal deficits noted Skin: No rash or skin lesions. Psychiatric: Cooperative. Non-suicidal Musculoskeletal: No joint swelling or deformity. Normal range of motion. - Labs CBC & Chem 7: 08/09/19 06:01 08/09/19 06:01 Labs: Abnormal Lab Results - Last 24 Hours (Table) 08/08/19 08/08/19 08/09/19 Range/Units 16:55 20:45 06:01 RBC 3.66 L (4.30-5.90) m/uL Hgb 11.3 L (13.0-17.5) gm/dL Hct 33.4 L (39.0-53.0) % BUN (9-20) mg/dL Creatinine (0.66-1.25) mg/dL Glucose (74-99) mg/dL POC Glucose (mg/dL) 190 H 191 H (75-99) mg/dL 08/09/19 08/09/19 08/09/19 Range/Units 06:01 06:57 11:52 RBC (4.30-5.90) m/uL Hgb (13.0-17.5) gm/dL Hct (39.0-53.0) % BUN 36 H (9-20) mg/dL Creatinine 1.49 H (0.66-1.25) mg/dL Glucose 120 H (74-99) mg/dL POC Glucose (mg/dL) 129 H 119 H (75-99) mg/dL Assessment and Plan Assessment: Chest pain. Rule out acute coronary syndrome. Triple-vessel coronary artery disease. CABG was recommended previously at [facility]. Acute kidney injury likely prerenal and possible underlying CK D stage III. Creatinine 1.5 Diabetes type 2 uncontrolled with his B A1c 8.8. Recently started on Levemir. COPD not in exacerbation Hypothyroidism Hypertension controlled Depression and schizophrenia history Ongoing nicotine addiction DVT prophylaxis with heparin subcu Recommendations and discussion: Recommend continue current medications, management, and symptomatic treatment. Cardiology was consulted and obtaining and reviewing medical records and recent cardiac catheterization from 2018. Awaiting echo report. Adjustments have been made to his insulin and will continue to monitor closely. Further recommendations to follow. Guarded prognosis. Case management and rn social services following for possible placement upon discharge as patient is currently homeless. Smoking cessation has been counseled.
[2019-08-09 20:13] LABS: Glucose,Whole Blood 270 mg/dL (75-99)
[2019-08-09] MEDS: ATORVASTATIN 20 MG TAB PO SCH (20:27)
[2019-08-09] MEDS: INSULIN DETEMIR (LEVEMIR) 100 UNIT/ML SYR SQ SCH (20:27)
[2019-08-09] MEDS: traZODone HCL 100 MG TAB PO SCH (20:27)
[2019-08-10 06:32] LABS: Glucose,Whole Blood 162 mg/dL (75-99)
[2019-08-10] MEDS: INSULIN ASPART (NovoLOG) 100 UNIT/ML VIAL SQ SCH ×7 (06:56→20:35)
[2019-08-10] MEDS: LEVOTHYROXINE 88 MCG TAB PO SCH (06:58)
[2019-08-10] MEDS: NICOTINE 14MG/24HR PATCH TRANSDERM SCH (06:58)
[2019-08-10] MEDS: lamoTRIgine 100 MG TAB PO SCH (08:48)
[2019-08-10] MEDS: CHOLECALCIFEROL 1,000 UNIT TAB PO SCH (08:48)
[2019-08-10] MEDS: CLOPIDOGREL 75 MG TAB PO SCH (08:49)
[2019-08-10] MEDS: FOLIC ACID 1 MG TAB PO SCH (08:49)
[2019-08-10 10:52] LABS: Calcium 9.2 mg/dL (8.4-10.2); Potassium 4.8 mmol/L (3.5-5.1)
--- NOTE | 2019-08-10 11:02 | P.PN ---
Subjective Progress Note Date: 08/10/19 Principal diagnosis: Chest discomfort This is a pleasant 49-year-old gentleman with history of coronary artery disease as well as hypertension and dyslipidemia who was admitted to the hospital with chest discomfort. He is known to have CAD based on heart catheterization was performed in April 2019 revealed severe triple-vessel CAD. The patient was seen by the surgical team and he was turned down to undergo surgery. I did see the patient this morning, 08/12/2019. He is experiencing mild ongoing chest discomfort. I did recommend proceeding with coronary angiogram and p ossible percutaneous coronary intervention. Meanwhile I will maximize his medical treatment. Objective - Vital Signs Vital signs: Vital Signs Temp 97.8 F 08/10/19 08:35 Pulse 75 08/10/19 08:35 Resp 18 08/10/19 08:35 BP 118/75 08/10/19 08:35 Pulse Ox 96 08/10/19 08:35 Intake & Output 08/09/19 08/10/19 08/10/19 18:59 06:59 18:59 Intake Total 1440 240 400 Output Total 1125 900 Balance 315 -660 400 Weight 77.9 kg Intake: Oral 1440 240 400 Output: Urine 1125 900 Other: Voiding Method Urinal # Voids 0 3 - Constitutional General appearance: Present: no acute distress - Respiratory Respiratory: bilateral: CTA - Cardiovascular Rhythm: regular Heart sounds: normal: S1, S2 - Labs CBC & Chem 7: 08/09/19 06:01 08/10/19 09:45 Labs: Abnormal Lab Results - Last 24 Hours (Table) 08/09/19 08/09/19 08/09/19 Range/Units 11:52 16:44 20:12 BUN (9-20) mg/dL POC Glucose (mg/dL) 119 H 195 H 270 H (75-99) mg/dL 08/10/19 08/10/19 Range/Units 06:31 09:45 BUN 30 H (9-20) mg/dL POC Glucose (mg/dL) 162 H (75-99) mg/dL Assessment and Plan Assessment: Assessment #1 severe triple-vessel coronary artery disease #2 ongoing chest discomfort #3 hypertension #4 dyslipidemia Plan #1 maximize the medical treatment #2 proceed with coronary angiogram
[2019-08-10] MEDS ORDERED: ATORVASTATIN 80 MG TAB PO STA (11:41)
[2019-08-10] MEDS ORDERED: SODIUM CHLORIDE 0.9% 1,000 ML in EMPTY BAG 1 BAG IV ONE (11:41)
[2019-08-10] MEDS ORDERED: ALPRAZolam 0.25 MG TAB PO PRN (11:41)
[2019-08-10] MEDS ORDERED: ASPIRIN 325 MG TAB PO STA (11:41)
[2019-08-10] MEDS ORDERED: ALPRAZolam 0.5 MG TAB PO PRN (11:41)
[2019-08-10] MEDS ORDERED: NITROGLYCERIN SL TABS 0.4 MG TAB SUBLINGUAL PRN (11:41)
[2019-08-10 11:55] LABS: Glucose,Whole Blood 171 mg/dL (75-99)
[2019-08-10] MEDS: ISOSORBIDE MONONITRATE ER 30 MG TAB.ER.24H PO SCH (12:04)
[2019-08-10] MEDS: SODIUM CHLORIDE 0.9% 1,000 ML IV SCH (12:04)
--- NOTE | 2019-08-10 13:52 | P.PN ---
Subjective Progress Note Date: 08/10/19 Principal diagnosis: Patient is a 49-year-old male with a known history of hypertension, diabetes type 2 non-insulin dependent, COPD, hypothyroidism, depression/schizophrenia history, ongoing nicotine addiction initially presented to [facility] with the complaints of chest pain or shortness of breath. Patient was found have negative serial troponins and EKG. D-dimer is slightly elevated and he had VQ scan showed low probability for PE. Echocardiogram on 08/01/2019 showed mild LVH and ejection fraction 60-65% and normal LV diastolic function. Patient was found have elevated blood sugars in 400s. Patient was hydrated and kidney function improved as well. Patient was started on long-acting insulin and continue with sliding scale. Patient was dehydrated with creatinine level I.7 and being on 61 at that time. Urine culture showed 25-50,000 Proteus mirabilis. Patient was given antibiotics in the form of ceftriaxone. Currently patient denied any complaints of chest pain. Blood sugar is better controlled. Shortness of breath improved as well. Records obtained from [facility] showed triple-vessel disease. Patient was supposed to follow with his radio recorder after better glycemic control. Patient does have a history of depression/schizophrenia. Patient also had recent inpatient psychiatric admission. Patient did have a restraining order from his mother. Currently patient is living in a snf. Otherwise patient is more awake and oriented. Was to proceed with surgery at reported on. Patient was transferred to [facility] for further evaluation by CT surgery. 08/08/2019 Patient is sitting up in the chair in no acute distress with no acute overnight issues. Patient was seen by cardiothoracic surgery and recommending maximizing medical management. Cardiology was consulted and is pending at this time. Patient denies any chest pain or palpitations at this time. Patient continues to have shortness of breath but is slightly improved from yesterday. Patient states he is unsure why he is not a surgical candidate for his triple-vessel coronary artery disease and is awaiting for cardiology at this time. Patient states that most of his heart care was done at [facility]. Patient has been afebrile. Patient denies any nausea or vomiting and is tolerating diet. Currently patient's blood sugars remain slightly elevated and adjustments at that may to the insulins and will continue to monitor closely. When discussing with patient about possible discharge plans he states that he would prefer a re hab center if possible as he is currently homeless and unable to go back to the snf. Guarded prognosis. Case management and hospice social worker following. 08/09/2019 Patient is lying in bed in no acute distress with no acute overnight issues. Patient was seen by cardiology today and is recommending obtaining an echo if not previously done at [facility]. Patient currently denies any shortness of breath or palpitations at this time. Patient has intermittent chest pain and tenderness located in the midsternal area. Patient denies any nausea or vomiting and has been tolerating diet. Patient records from previous admissions are being reviewed currently to determine treatment plan. Patient was seen by cardiothoracic surgery and is not a surgical candidate at this time and significantly high risk for surgery. Will continue to monitor closely. Case management and social work are following to determine possible placement upon discharge as he is currently homeless. 08/10/2019 Patient is sitting up in bed in no acute distress and continues to have chest pressure or heaviness as he notes to his midsternal upper chest area states it is about a 4 out of 10 on the pain scale at this time. Cardiology is following and planning for cardiac catheterization. Currently patient denies any feelings of palpitations or shortness of breath. Patient has been afebrile. Patient denies any nausea or vomiting and is tolerating diet. Blood sugars are being monitored closely and adjustments to his insulins have been made. No acute overnight issues. Creatinine is trending down and is currently 1.22. Will continue to monitor closely. Objective - Vital Signs Vital signs: Vital Signs Temp 97.8 F 08/10/19 08:35 Pulse 75 08/10/19 08:35 Resp 18 08/10/19 08:35 BP 118/75 08/10/19 08:35 Pulse Ox 96 08/10/19 08:35 Intake & Output 08/09/19 08/10/19 08/10/19 18:59 06:59 18:59 Intake Total 1440 240 400 Output Total 1125 900 Balance 315 -660 400 Weight 77.9 kg Intake: Oral 1440 240 400 Output: Urine 1125 900 Other: Voiding Method Urinal # Voids 0 3 - Exam Patient is lying in bed comfortably, no acute distress, awake alert and oriented.. HEENT: Normocephalic. Neck is supple. Pupils reactive. Nostrils clear. Oral cavity is moist. Ears reveal no drainage. Neck reveals no JVD, carotid bruits, or thyromegaly. CHEST EXAMINATION: Trachea is central. Symmetrical expansion. Lung hauser clear to auscultation and percussion. CARDIAC: Normal S1, S2 with no gallops. No murmurs ABDOMEN: Soft. Bowel sounds normal. No organomegaly. No abdominal bruits. Extremities: reveal no edema. No clubbing or cyanosis. Right knee abnormality noted from previous surgery Neurologically awake, alert, oriented x3 with well-coordinated movements. No focal deficits noted Skin: No rash or skin lesions. Psychiatric: Cooperative. Non-suicidal Musculoskeletal: No joint swelling or deformity. Normal range of motion. - Labs CBC & Chem 7: 08/09/19 06:01 08/10/19 09:45 Labs: Abnormal Lab Results - Last 24 Hours (Table) 08/09/19 08/09/19 08/09/19 Range/Units 11:52 16:44 20:12 BUN (9-20) mg/dL POC Glucose (mg/dL) 119 H 195 H 270 H (75-99) mg/dL 08/10/19 08/10/19 Range/Units 06:31 09:45 BUN 30 H (9-20) mg/dL POC Glucose (mg/dL) 162 H (75-99) mg/dL Assessment and Plan Assessment: Chest pain. Rule out acute coronary syndrome. Triple-vessel coronary artery disease. CABG was recommended previously at [facility]. Acute kidney injury likely prerenal and possible underlying CK D stage III. Creatinine 1.22 Diabetes type 2 uncontrolled with his B A1c 8.8. Recently started on Levemir. COPD not in exacerbation Hypothyroidism Hypertension controlled Depression and schizophrenia history Ongoing nicotine addiction DVT prophylaxis with heparin subq Recommendations and discussion: Recommend continue current medications, management, and symptomatic treatment. Cardiology following. Possible cardiac catheterization in the morning. Adjustments have been made to his insulin and will continue to monitor closely. Further recommendations to follow. Guarded prognosis. Case management and hospice social worker following for possible placement upon discharge as patient is c urrently homeless. Smoking cessation has been counseled.
[2019-08-10 17:19] LABS: Glucose,Whole Blood 165 mg/dL (75-99)
[2019-08-10 20:26] LABS: Glucose,Whole Blood 149 mg/dL (75-99)
[2019-08-10] MEDS: ATORVASTATIN 20 MG TAB PO SCH (20:36)
[2019-08-10] MEDS: INSULIN DETEMIR (LEVEMIR) 100 UNIT/ML SYR SQ SCH (20:36)
[2019-08-10] MEDS: traZODone HCL 100 MG TAB PO SCH (20:36)
[2019-08-11] MEDS: SODIUM CHLORIDE 0.9% 1,000 ML IV SCH ×2 (00:13→17:06)
[2019-08-11 06:15] LABS: Glucose,Whole Blood 191 mg/dL (75-99)
[2019-08-11] MEDS: INSULIN ASPART (NovoLOG) 100 UNIT/ML VIAL SQ SCH ×7 (06:32→20:12)
[2019-08-11] MEDS: LEVOTHYROXINE 88 MCG TAB PO SCH (06:32)
[2019-08-11] MEDS: CHOLECALCIFEROL 1,000 UNIT TAB PO SCH (08:46)
[2019-08-11] MEDS: METOPROLOL TARTRATE 25 MG TAB PO SCH (08:46)
[2019-08-11] MEDS: ISOSORBIDE MONONITRATE ER 30 MG TAB.ER.24H PO SCH (08:46)
[2019-08-11] MEDS: lamoTRIgine 100 MG TAB PO SCH (08:46)
[2019-08-11] MEDS: NICOTINE 14MG/24HR PATCH TRANSDERM SCH (08:46)
[2019-08-11] MEDS: LISINOPRIL 5 MG TAB PO SCH (08:47)
[2019-08-11] MEDS: CLOPIDOGREL 75 MG TAB PO SCH (08:47)
[2019-08-11] MEDS: FOLIC ACID 1 MG TAB PO SCH (08:47)
[2019-08-11] MEDS: ASPIRIN 81 MG PO SCH (08:47)
[2019-08-11] MEDS ORDERED: LIDOCAINE 1% INJ 10MG/ML (20 ML MDV) ONE ×2 (09:05→09:15)
[2019-08-11] MEDS ORDERED: VERAPAMIL 2.5 MG/ML 2 ML AMP ONE ×2 (09:05→09:14)
[2019-08-11] MEDS ORDERED: HEPARIN SODIUM 1,000 UN/ML (10ML VL) ONE (09:14)
[2019-08-11] MEDS ORDERED: SODIUM CHLORIDE 0.9% 1,000 ML IV ONE ×2 (09:18→10:26)
[2019-08-11] MEDS ORDERED: MIDAZOLAM 2 MG/2 ML VIAL IVP ONE (09:41)
[2019-08-11] MEDS ORDERED: LIDOCAINE 1% INJ 10MG/ML (20 ML MDV) SQ ONE ×2 (09:44)
[2019-08-11] MEDS ORDERED: BIVALIRUDIN BOLUS 250 MG/50 ML IV ONE (10:25)
[2019-08-11] MEDS ORDERED: BIVALIRUDIN 250 MG in SODIUM CHLORIDE 0.9% 50 ML IV ONE (10:26)
[2019-08-11] MEDS ORDERED: CLOPIDOGREL 75 MG TAB ONE (10:27)
[2019-08-11] MEDS ORDERED: CLOPIDOGREL 75 MG TAB PO ONE (10:38)
[2019-08-11] MEDS ORDERED: NITROGLYCERIN 1000MCG/10ML SYRINGE INTRACORON ONE (10:50)
[2019-08-11] MEDS ORDERED: hydrOXYzine PAMOATE 25 MG CAP PO PRN (10:50)
[2019-08-11] MEDS ORDERED: RX INFO: IV CONTRAST WAS GIVEN 1 EACH MISC MISCELLANE PRN (10:51)
[2019-08-11] MEDS ORDERED: MAG HYDROX/AL HYDROX/SIMETH 30 ML CUP PO PRN (10:51)
[2019-08-11] MEDS ORDERED: IOPAMIDOL-370 125ML BTL INJ ONE (10:53)
[2019-08-11] MEDS ORDERED: SODIUM CHLORIDE 0.9% 1,000 ML IV SCH (11:00)
[2019-08-11] MEDS ORDERED: IOPAMIDOL-370 100ML BTL INJ ONE (11:03)
--- NOTE | 2019-08-11 11:52 | CC ---
CARDIAC CATHETERIZATION REPORT DATE OF SERVICE: 08/11/2019 PERFORMING PHYSICIAN: Jaden Gutiérrez MD, Department Administrator. PROCEDURE PERFORMED: 1. Selective right and left coronary angiogram. 2. Left heart catheterization. 3. Successful stenting of the left circumflex coronary artery using 2.75 x 38 and 2.75 x 12 mm Xience MARITZA eluting stent which was dilated using 3 mm balloon with an excellent angiographic results and reduction of stenosis from 95% to 0%. INDICATION: This is a 49-year-old gentleman with history of coronary artery disease as well as hypertension and dyslipidemia who was admitted recently from [facility] with chest discomfort. He is known to have severe triple-vessel coronary artery disease based on heart catheterization was performed April of 2019 at [facility]. The patient was referred, the patient was treated medically. Subsequently he presented to [facility] with chest discomfort and then he was transferred to [facility]. He was seen by cardiothoracic surgeon who deemed the patient to be high risk for the surgery. Because of that and because he continues to have chest discomfort, we decided to pursue with a heart catheterization and possible percutaneous coronary intervention. APPROACH: Right common femoral artery. COMPLICATIONS: None. LEVEL OF SEDATION: Moderate with sedation length of 72 minutes. PROCEDURE DESCRIPTION: After obtaining an informed consent, the patient was brought to the cardiac computer laboratory technician. The right radial artery was cannulated using micropuncture technique and a micropuncture wire passed easily, then I placed a 6-Khmer sheath. At that point, I did selective right and left coronary angiogram using JR3.5 and JL3.5 catheters. Left heart catheterization was performed using the JR4 catheter which flipped into the left ventricle. Then I did pullback across aortic valve. The procedure was completed without any complication. SELECTIVE CORONARY ANGIOGRAM: 1. The right coronary artery is a large caliber vessel and is a dominant vessel. The proximal RCA is angiographically normal. The mid RCA has a long tubular lesion, appeared to be in the range of 70%. The RCA distally has another lesion appeared to be in the range of 70% just before the bifurcation into PDA and PLV branches. 2. The left main has mild disease only. It bifurcates into LCX and LAD. 3. The LCX is a large caliber vessel. It is a nondominant vessel. The ostial circumflex appeared to have a lesion in the range of 95%. The circumflex after that appeared to be angiographically normal. It gives rise into a large OM branch which is involved in the lesion from the ostial circumflex and appeared to be diseased in the range of 95%. The circumflex in the midportion appeared to be normal and distally appeared to have diffuse disease. 4. The LAD, the proximal LAD appeared to have mild disease only. The mid LAD appeared to have another tubular lesion in the range of 60% to 70%. The LAD gives rise into two diagonal branches. The first diagonal branch is a large diagonal, appeared to have ostial lesion in the range of 90%-95% and the second diagonal is a medium caliber vessel with disease in the range of 60%. The LAD distally appeared to have mild disease only. 5. HEMODYNAMICS: The LVEDP was stented to 12 mmHg without significant gradient across the aortic valve. ECL OF LEFT CIRCUMFLEX: Anticoagulation was initiated using Angiomax. Subsequently, I did engage the left main using JL4 guide. I did wire the LAD using a run-through wire and the OM using a whisper wire. After that, I did balloon angioplasty of the left circumflex using 2.5 x 12 mm balloon which was inflated multiple times in the in the lesion in the proximal left circumflex. After that, I deployed 2.75 x 38 mm Xience MARITZA where the stent was positioned under fluoroscopy guidance and deployed under 14 atmospheres for 20 seconds. The following angiogram showed what seems possible plaque shift distal to the stent in the left circumflex which I decided to cover with using another stent which I deployed at that point, 2.75 x 12 mm Xience. The second stent was positioned under fluoroscopy guidance and deployed under 14 atmospheres for 20 seconds. The area of overlap between the 2 stents was dilated using the stent balloon. After that, I did post dilated the whole stent in the left circumflex using a 3.0 mm balloon. The final angiogram showed great results and the procedure was completed without any complication. POSTPROCEDURE MANAGEMENT: 1. Dual anti-platelet therapy. 2. Risk factors modifications. 3. Follow up with the patient. NATHAN / MAILEN: [id number] /
[2019-08-11 11:57] LABS: Glucose,Whole Blood 99 mg/dL (75-99)
[2019-08-11] MEDS ORDERED: ATROPINE SULFATE 0.1 MG/ML 10ML SYRINGE ONE (13:45)
[2019-08-11] MEDS: HYDROcodone/APAP 5-325MG 1 EACH TAB PO PRN (14:14)
[2019-08-11 15:05] VITALS: BMI 22.4
--- NOTE | 2019-08-11 15:55 | P.PN ---
Subjective Progress Note Date: 08/11/19 Principal diagnosis: Patient is a 49-year-old male with a known history of hypertension, diabetes type 2 non-insulin dependent, COPD, hypothyroidism, depression/schizophrenia history, ongoing nicotine addiction initially presented to [facility] with the complaints of chest pain or shortness of breath. Patient was found have negative serial troponins and EKG. D-dimer is slightly elevated and he had VQ scan showed low probability for PE. Echocardiogram on 08/01/2019 showed mild LVH and ejection fraction 60-65% and normal LV diastolic function. Patient was found have elevated blood sugars in 400s. Patient was hydrated and kidney function improved as well. Patient was started on long-acting insulin and continue with sliding scale. Patient was dehydrated with creatinine level I.7 and being on 61 at that time. Urine culture showed 25-50,000 Proteus mirabilis. Patient was given antibiotics in the form of ceftriaxone. Currently patient denied any complaints of chest pain. Blood sugar is better controlled. Shortness of breath improved as well. Records obtained from [facility] showed triple-vessel disease. 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 Patient does have a history of depression/schizophrenia. Patient also had recent inpatient psychiatric admission. Patient did have a restraining order from his mother. Currently patient is living in a chcf. Otherwise patient is more awake and oriented. Was to proceed with surgery at reported on. Patient was transferred to [facility] for further evaluation by CT surgery. 08/08/2019 Patient is sitting up in the chair in no acute distress with no acute overnight issues. Patient was seen by cardiothoracic surgery and recommending maximizing medical management. Cardiology was consulted and is pending at this time. Patient denies any chest pain or palpitations at this time. Patient continues to have shortness of breath but is slightly improved from yesterday. Patient states he is unsure why he is not a surgical candidate for his triple-vessel coronary artery disease and is awaiting for cardiology at this time. Patient states that most of his heart care was done at [facility]. Patient has been afebrile. Patient denies any nausea or vomiting and is tolerating diet. Currently patient's blood sugars remain slightly elevated and adjustments at that may to the insulins and will continue to monitor closely. When discussing with patient about possible discharge plans he states that he would prefer a re hab center if possible as he is currently homeless and unable to go back to the chcf. Guarded prognosis. Case management and social media editor following. 08/09/2019 Patient is lying in bed in no acute distress with no acute overnight issues. Patient was seen by cardiology today and is recommending obtaining an echo if not previously done at [facility]. Patient currently denies any shortness of breath or palpitations at this time. Patient has intermittent chest pain and tenderness located in the midsternal area. Patient denies any nausea or vomiting and has been tolerating diet. Patient records from previous admissions are being reviewed currently to determine treatment plan. Patient was seen by cardiothoracic surgery and is not a surgical candidate at this time and significantly high risk for surgery. Will continue to monitor closely. Case management and social work are following to determine possible placement upon discharge as he is currently homeless. 08/10/2019 Patient is sitting up in bed in no acute distress and continues to have chest pressure or heaviness as he notes to his midsternal upper chest area states it is about a 4 out of 10 on the pain scale at this time. Cardiology is following and planning for cardiac catheterization. Currently patient denies any feelings of palpitations or shortness of breath. Patient has been afebrile. Patient denies any nausea or vomiting and is tolerating diet. Blood sugars are being monitored closely and adjustments to his insulins have been made. No acute overnight issues. Creatinine is trending down and is currently 1.22. Will continue to monitor closely. 08/11/2019 Patient is lying in bed in no acute distress and has recently just returned from cardiac catheterization. Patient underwent a right and left coronary angiogram, left heart catheterization, with successful stenting of the left circumflex coronary artery with balloon dilation and achieved reduction of stenosis from 95% to 0%. Cardiology is following closely. Currently patient denies any chest pain, shortness of breath, or palpitations. Patient is afebrile. Patient denies any nausea or vomiting and has just returned back to the unit to has not eaten yet. Will continue to monitor closely. Discussed with the patient at length about being compliant with medications and that upon discharge we will provide information and educate about each medications that he is taking and which ones he should not be taking anymore. Objective - Vital Signs Vital signs: Vital Signs Temp 97.5 F L 08/11/19 11:52 Pulse 65 08/11/19 13:52 Resp 12 08/11/19 13:52 BP 98/63 08/11/19 13:52 Pulse Ox 97 08/11/19 13:52 Intake & Output 08/10/19 08/11/19 08/11/19 18:59 06:59 18:59 Intake Total 1060 428 Output Total 400 401 Balance 660 27 Weight 75 kg Intake: IV 428 Oral 1060 0 Output: Urine 400 400 Stool 1 Other: Voiding Method Urinal # Bowel Movements 1 - Exam Patient is lying in bed comfortably, no acute distress, awake alert and oriented.. Vital signs are stable. HEENT: Normocephalic. Neck is supple. Pupils reactive. Nostrils clear. Oral cavity is moist. Ears reveal no drainage. Neck reveals no JVD, carotid bruits, or thyromegaly. CHEST EXAMINATION: Trachea is central. Symmetrical expansion. Lung hauser clear to auscultation and percussion. CARDIAC: Normal S1, S2 with no gallops. No murmurs ABDOMEN: Soft. Bowel sounds normal. No organomegaly. No abdominal bruits. Extremities: reveal no edema. No clubbing or cyanosis. Right knee abnormality noted from previous surgery Neurologically awake, alert, oriented x3 with well-coordinated movements. No focal deficits noted Skin: No rash or skin lesions. Psychiatric: Cooperative. Non-suicidal Musculoskeletal: No joint swelling or deformity. Normal range of motion. - Labs CBC & Chem 7: 08/09/19 06:01 08/10/19 09:45 Labs: Abnormal Lab Results - Last 24 Hours (Table) 08/10/19 08/10/19 08/11/19 Range/Units 17:12 20:24 06:13 POC Glucose (mg/dL) 165 H 149 H 191 H (75-99) mg/dL Assessment and Plan Assessment: Chest pain. Rule out acute coronary syndrome. Triple-vessel coronary artery disease. CABG was recommended previously at [facility]. Acute kidney injury likely prerenal and possible underlying CK D stage III. Creatinine 1.22 Diabetes type 2 uncontrolled with his B A1c 8.8. Recently started on Levemir. COPD not in exacerbation Hypothyroidism Hypertension controlled Depression and schizophrenia history Ongoing nicotine addiction DVT prophylaxis with heparin subq Recommendations and discussion: Recommend continue current medications, management, and symptomatic treatment. Will continue to monitor closely. Will repeat a.m. labs. Cardiology following. Patient underwent cardiac catheterization with stenting as mentioned previously. Patient will be resumed on dual antiplatelet therapy. Adjustments have been made to his insulin and will continue to monitor closely. Further recommendations to follow. Guarded prognosis. Case management and social media editor following for possible placement upon discharge as patient is currently homeless. Smoking cessation has been counseled.
[2019-08-11 17:01] LABS: Glucose,Whole Blood 348 mg/dL (75-99)
[2019-08-11 19:55] LABS: Glucose,Whole Blood 99 mg/dL (75-99)
[2019-08-11] MEDS ORDERED: ATORVASTATIN 80 MG TAB PO SCH (21:00)
--- NOTE | 2019-08-11 21:19 | P.PN ---
Subjective Progress Note Date: 08/07/19 Principal diagnosis: Chest pain Triple-vessel coronary artery disease Patient is a 49-year-old male with a known history of hypertension, diabetes type 2 non-insulin dependent, COPD, hypothyroidism, depression/schizophrenia history, ongoing nicotine addiction initially presented to [facility] with the complaints of chest pain or shortness of breath. Patient was found have negative serial troponins and EKG. D-dimer is slightly elevated and he had VQ scan showed low probability for PE. Echocardiogram on 08/01/2019 showed mild LVH and ejection fraction 60-65% and normal LV diastolic function. Patient was found have elevated blood sugars in 400s. Patient was hydrated and kidney function improved as well. Patient was started on long-acting insulin and continue with sliding scale. Patient was dehydrated with creatinine level I.7 and being on 61 at that time. Urine culture showed 25-50,000 Proteus mirabilis. Patient was given antibiotics in the form of ceftriaxone. Currently patient denied any complaints of chest pain. Blood sugar is better controlled. Shortness of breath improved as well. Regards obtained from [facility] showed triple-vessel disease. Patient was supposed to follow with his program planner after better glycemic control. Patient does have a history of depression/schizophrenia. Patient also had recent inpatient psychiatric admission. Patient did have a restraining order from his mother. Currently patient is living in a correction. Otherwise patient is more awake and oriented. Was to proceed with surgery at reported on. Patient was transferred to [facility] for further evaluation by CT surgery. 08/07/2019 Patient denied any complaints of chest pain today. No worsening shortness of breath. Blood sugar is fairly controlled. Patient was evaluated by CT surgery. Patient is not a good surgical candidate due to uncontrolled diabetes and poor medication compliance. Cardiology was consulted as well. No cough is of sputum production. Patient says that he feels weak. No other acute overnight issues. Current medications reviewed. Objective - Vital Signs Vital signs: Vital Signs Temp 98.3 F 08/07/19 07:50 Pulse 66 08/07/19 16:00 Resp 16 08/07/19 16:00 BP 178/81 08/07/19 16:00 Pulse Ox 98 08/07/19 16:00 Intake & Output 08/06/19 08/07/19 08/07/19 18:59 06:59 18:59 Intake Total 840 720 Output Total 400 925 600 Balance 440 -925 120 Weight 70.5 kg 75.9 kg Intake: Oral 840 720 Output: Urine 400 925 600 Other: # Voids 0 1 - Exam PHYSICAL EXAMINATION: Patient is lying in the bed comfortably, no acute distress, awake alert and oriented.. HEENT: Normocephalic. Neck is supple. Pupils reactive. Nostrils clear. Oral cavi ty is moist. Ears reveal no drainage. Neck reveals no JVD, carotid bruits, or thyromegaly. CHEST EXAMINATION: Trachea is central. Symmetrical expansion. Lung hauser clear to auscultation and percussion. CARDIAC: Normal S1, S2 with no gallops. No murmurs ABDOMEN: Soft. Bowel sounds normal. No organomegaly. No abdominal bruits. Extremities: reveal no edema. No clubbing or cyanosis Neurologically awake, alert, oriented x3 with well-coordinated movements. No focal deficits noted Skin: No rash or skin lesions. Psychiatric: Coperative. Nonsuicidal Musculoskeletal: No joint swelling or deformity. Normal range of motion. - Labs CBC & Chem 7: 08/09/19 06:01 08/10/19 09:45 Labs: Abnormal Lab Results - Last 24 Hours (Table) 08/06/19 08/07/19 08/07/19 Range/Units 20:05 06:21 12:19 POC Glucose (mg/dL) 262 H 109 H 134 H (75-99) mg/dL Assessment and Plan Assessment: Chest pain. Ruled out acute coronary syndrome. Triple-vessel coronary artery disease. CABG was recommended previously at [facility]. Acute kidney injury likely prerenal and possible underlying CK D stage III. Creatinine 1.5 Diabetes type 2 uncontrolled with his B A1c 8.8. Recently started on Levemir. COPD not in exacerbation Hypothyroidism Hypertension controlled Depression and schizophrenia history Ongoing nicotine addiction DVT prophylaxis with heparin subcu Plan: Patient will be continued on telemetry monitoring. Encourage oral intake and follow-up renal function. Patient was started on Levemir 20 units at bedtime and insulin sliding scale or better blood sugar control. Continue with preprandial insulin. Continue with Plavix and statins. Cardiology and CT surgery evaluation. Further recommendations based on the clinical course. Smoking cessation has been counseled. Time with Patient: Greater than 30
[2019-08-11] MEDS: INSULIN DETEMIR (LEVEMIR) 100 UNIT/ML SYR SQ SCH (21:54)
[2019-08-11] MEDS: traZODone HCL 100 MG TAB PO SCH (21:54)
[2019-08-12] MEDS: LEVOTHYROXINE 88 MCG TAB PO SCH (06:22)
[2019-08-12] MEDS: HYDROcodone/APAP 5-325MG 1 EACH TAB PO PRN (06:22)
[2019-08-12] MEDS: SODIUM CHLORIDE 0.9% 1,000 ML IV SCH (06:25)
[2019-08-12 06:39] LABS: Glucose,Whole Blood 216 mg/dL (75-99)
[2019-08-12] MEDS: INSULIN ASPART (NovoLOG) 100 UNIT/ML VIAL SQ SCH ×4 (06:48→12:13)
[2019-08-12 06:58] LABS: Basophils % (A) 1 %; Eosinophils # (A) 0.2 k/uL (0-0.7); Eosinophils % (A) 4 %; HCT 30.2 % (39.0-53.0); Lymphocytes # (A) 1.4 k/uL (1.0-4.8); Lymphocytes % (A) 24 %; MCH 30.2 pg (25.0-35.0); MCHC 32.4 g/dL (31.0-37.0); MCV 93.3 fL (80.0-100.0); Monocytes # (A) 0.4 k/uL (0-1.0); Monocytes % (A) 7 %; Neutrophils # (A) 3.8 k/uL (1.3-7.7); Neutrophils % (A) 63 %; Platelet Count 165 k/uL (150-450); RBC 3.24 m/uL (4.30-5.90); RDW 14.2 % (11.5-15.5)
[2019-08-12 07:09] LABS: HGB 9.8 gm/dL (13.0-17.5)
[2019-08-12 07:10] LABS: African American GFR (CKD) >90 (>60 ml/min/1.73 sqM); Anion Gap 5 mmol/L; Blood Urea Nitrogen 22 mg/dL (9-20); Calcium 9.3 mg/dL (8.4-10.2); Carbon Dioxide 29 mmol/L (22-30); Chloride 106 mmol/L (98-107); Glucose 220 mg/dL (74-99); Non-African American GFR(CKD) 80 (>60 ml/min/1.73 sqM); Potassium 4.6 mmol/L (3.5-5.1); Sodium 140 mmol/L (137-145)
[2019-08-12] MEDS ORDERED: GLIMEPIRIDE 4 MG TAB PO SCH (07:30)
[2019-08-12 08:41] VITALS: RESP 14
[2019-08-12] MEDS: lamoTRIgine 100 MG TAB PO SCH (08:41)
[2019-08-12] MEDS: CHOLECALCIFEROL 1,000 UNIT TAB PO SCH (08:43)
[2019-08-12] MEDS: ASPIRIN 81 MG PO SCH (08:44)
[2019-08-12] MEDS: NICOTINE 14MG/24HR PATCH TRANSDERM SCH (08:44)
[2019-08-12] MEDS: CLOPIDOGREL 75 MG TAB PO SCH (08:44)
[2019-08-12] MEDS: ISOSORBIDE MONONITRATE ER 30 MG TAB.ER.24H PO SCH (08:45)
[2019-08-12] MEDS: FOLIC ACID 1 MG TAB PO SCH (08:46)
[2019-08-12] MEDS: LISINOPRIL 5 MG TAB PO SCH (08:46)
--- NOTE | 2019-08-12 10:56 | P.PN ---
Subjective Progress Note Date: 08/12/19 Principal diagnosis: Chest discomfort This is a pleasant 49-year-old gentleman with history of coronary artery disease as well as hypertension and dyslipidemia who was admitted to the hospital with chest discomfort. He is known to have CAD based on heart catheterization was performed in April 2019 revealed severe triple-vessel CAD. The patient was seen by the surgical team and he was turned down to undergo surgery. Subsequently I did perform a heart catheterization on him yesterday which revealed severe triple-vessel coronary artery disease with the most critical lesion is the left circumflex which I did perform successful stenting after I spoke with the surgeon again regarding taking the patient to undergo open heart and he was deemed again to be high risk for the surgery. The patient was seen this morning. He is asymptomatic from cardiovascular standpoint overview. He is on dual antiplatelet therapy. From the cardiac vascular standpoint overview, the patient can be discharged home. Objective - Vital Signs Vital signs: Vital Signs Temp 97.4 F L 08/12/19 08:00 Pulse 69 08/12/19 08:00 Resp 14 08/12/19 08:00 BP 182/90 08/12/19 08:00 Pulse Ox 100 08/12/19 08:00 Intake & Output 08/11/19 08/12/19 08/12/19 18:59 06:59 18:59 Intake Total 1148 444 360 Output Total 751 1400 250 Balance 397 -956 110 Weight 75 kg 74.5 kg Intake: IV 428 Oral 720 444 360 Output: Urine 750 1400 250 Stool 1 Other: Voiding Method Urinal # Voids 1 - Constitutional General appearance: Present: no acute distress - Respiratory Respiratory: bilateral: CTA - Cardiovascular Rhythm: regular Heart sounds: normal: S1, S2 - Labs CBC & Chem 7: 08/12/19 05:58 08/12/19 05:58 Labs: Abnormal Lab Results - Last 24 Hours (Table) 08/11/19 08/12/19 08/12/19 Range/Units 16:57 05:58 05:58 RBC 3.24 L (4.30-5.90) m/uL Hgb 9.8 L D (13.0-17.5) gm/dL Hct 30.2 L (39.0-53.0) % BUN 22 H (9-20) mg/dL Glucose 220 H (74-99) mg/dL POC Glucose (mg/dL) 348 H (75-99) mg/dL 08/12/19 Range/Units 06:35 RBC (4.30-5.90) m/uL Hgb (13.0-17.5) gm/dL Hct (39.0-53.0) % BUN (9-20) mg/dL Glucose (74-99) mg/dL POC Glucose (mg/dL) 216 H (75-99) mg/dL Assessment and Plan Assessment: Assessment #1 severe triple-vessel coronary artery disease #2 status post PCI of the LCx #3 hypertension #4 dyslipidemia Plan #1 continue the current medical regimen #2 the patient can be discharged home
[2019-08-12] MEDS: METOPROLOL TARTRATE 25 MG TAB PO SCH (11:19)
[2019-08-12 11:24] VITALS: BP 158/87; PULSE 66; TEMP 97.7
[2019-08-12 11:39] LABS: Glucose,Whole Blood 138 mg/dL (75-99)
--- NOTE | 2019-08-12 14:14 | P.DS ---
Providers Date of admission: 08/05/19 15:57 Expected date of discharge: 08/12/19 Attending physician: Reno Hale Consults: 08/06/19 10:54 Consult Physician Routine Consulting Provider: Francine Martini Consult Reason/Comments: CABG workup Do you want consulting provider notified?: Yes 08/08/19 11:12 Consult Physician Urgent Consulting Provider: Jaden Gutiérrez Consult Reason/Comments: medical management vs stenting Do you want consulting provider notified?: Yes 08/11/19 10:51 Consult Physician Routine Consulting Provider: [facility] Consult Reason/Comments: Post Interventional patient Do you want consulting provider notified?: Already Contacted Primary care physician: Stated None Hospital Course: Final diagnosis Chest pain. Rule out acute coronary syndrome. Triple-vessel coronary artery disease. Acute kidney injury likely prerenal and possible underlying CK D stage III. Diabetes type 2 uncontrolled COPD not in exacerbation Hypothyroidism Hypertension controlled Depression and schizophrenia history Ongoing nicotine addiction DVT prophylaxis Discharge disposition Patient is being discharged in a stable condition with guarded prognosis. Elina ent will follow-up with cardiology in 1-2 weeks as discussed and scheduled. Total time taken is 35 minutes. History of present illness Patient is a 49-year-old male with a known history of hypertension, diabetes type 2 non-insulin dependent, COPD, hypothyroidism, depression/schizophrenia history, ongoing nicotine addiction initially presented to [facility] with the complaints of chest pain or shortness of breath. Patient was found have negative serial troponins and EKG. D-dimer is slightly elevated and he had VQ scan showed low probability for PE. Echocardiogram on 08/01/2019 showed mild LVH and ejection fraction 60-65% and normal LV diastolic function. Patient was found have elevated blood sugars in 400s. Patient was hydrated and kidney function improved as well. Patient was started on long-acting insulin and continue with sliding scale. Patient was dehydrated with creatinine level I.7 and being on 61 at that time. Records obtained from [facility] showed triple-vessel disease. Patient was supposed to follow with his driver/merchandiser after better glycemic control. Patient does have a history of depression/schizophrenia. Patient also had recent inpatient psychiatric admission. During hospitalization patient was followed by cardiology and underwent cardiac catheterization with stent placement to the left circumflex. Patient will be continued on dual antiplatelet therapy and will follow-up with cardiology as discussed previously. Currently patient's condition is stable and is ready for discharge today. Patient will continue with monitoring of blood sugars before meals at bedtime and treat accordingly with sliding scale along with long-acting insulin. Currently patient denies any chest pain, shortness of breath, or palpitations. Patient is afebrile. Patient denies any nausea or vomiting and is tolerating diet. On exam vital signs are stable. Temp is 97.7F, pulse is 66, respirations are 14, blood pressure is 150/87, oxygen saturation is 97% on room air. Cardio S1, S2 are present. Respirations system shows clear to auscultation. Abdomen is soft, thin, nontender. Nervous system shows no focal deficits. Please refer to medication reconciliation sheet for a list of medications. Patient Condition at Discharge: Fair Plan - Discharge Summary Discharge Rx Participant: Yes New Discharge Prescriptions: New Aspirin 81 mg PO DAILY 30 Days #30 chew Isosorbide Mononitrate ER [Imdur] 30 mg PO DAILY 30 Days #30 tab.er.24h Atorvastatin [Lipitor] 80 mg PO HS 30 Days #30 tab Metoprolol Tartrate [Lopressor] 25 mg PO DAILY 30 Days #30 tab HYDROcodone/APAP 5-325MG [[place] 5-325] 1 each PO Q6HR PRN #12 tab PRN Reason: Moderate Pain INSULIN ASPART (NovoLOG) [NovoLOG (formulary)] 5 unit SQ AC-TID 30 Days #3 vial Lisinopril [Zestril] 5 mg PO DAILY 30 Days #30 tab Continue INSULIN ASPART (NovoLOG) [NovoLOG (formulary)] See Protocol SQ ACHS Nicotine 14Mg/24Hr Patch [Habitrol] 1 patch TRANSDERM DAILY 14 Days patch lamoTRIgine [LaMICtal] 150 mg PO DAILY 28 Days tab Levothyroxine Sodium [Synthroid] 175 mcg PO DAILY 28 Days tablet Folic Acid 1 mg PO DAILY 28 Days tab Clopidogrel Bisulfate [Plavix] 75 mg PO DAILY 28 Days tab Cholecalciferol [Vitamin D3 (25 Mcg = 1000 Iu)] 5,000 unit PO DAILY 28 Days tab Insulin Glargine [Lantus] 20 unit SQ HS Albuterol Sulfate [Ventolin HFA] 1 - 2 puff INHALATION RT-QID PRN PRN Reason: Shortness Of Breath Glimepiride [Amaryl] 4 mg PO AC-BRKFST hydrOXYzine PAMOATE [Vistaril] 25 mg PO BID PRN PRN Reason: Anxiety metFORMIN HCL [Glucophage] 1,000 mg PO BID traZODone HCL [Desyrel] 200 mg PO HS 30 Days #30 tab Discontinued Atorvastatin [Lipitor] 20 mg PO DAILY Discharge Medication List INSULIN ASPART (NovoLOG) [NovoLOG (formulary)] See Protocol SQ ACHS 07/17/19 [History] Cholecalciferol [Vitamin D3 (25 Mcg = 1000 Iu)] 5,000 unit PO DAILY 28 Days tab 07/25/19 [Rx] Clopidogrel Bisulfate [Plavix] 75 mg PO DAILY 28 Days tab 07/25/19 [Rx] Folic Acid 1 mg PO DAILY 28 Days tab 07/25/19 [Rx] Levothyroxine Sodium [Synthroid] 175 mcg PO DAILY 28 Days tablet 07/25/19 [Rx] Nicotine 14Mg/24Hr Patch [Habitrol] 1 patch TRANSDERM DAILY 14 Days patch 07/25/19 [Rx] lamoTRIgine [LaMICtal] 150 mg PO DAILY 28 Days tab 07/25/19 [Rx] Insulin Glargine [Lantus] 20 unit SQ HS 07/27/19 [History] Albuterol Sulfate [Ventolin HFA] 1 - 2 puff INHALATION RT-QID PRN 08/05/19 [History] Glimepiride [Amaryl] 4 mg PO AC-BRKFST 08/05/19 [History] hydrOXYzine PAMOATE [Vistaril] 25 mg PO BID PRN 08/05/19 [History] metFORMIN HCL [Glucophage] 1,000 mg PO BID 08/05/19 [History] Aspirin 81 mg PO DAILY 30 Days #30 chew 08/12/19 [Rx] Atorvastatin [Lipitor] 80 mg PO HS 30 Days #30 tab 08/12/19 [Rx] HYDROcodone/APAP 5-325MG [[place] 5-325] 1 each PO Q6HR PRN #12 tab 08/12/19 [Rx] INSULIN ASPART (NovoLOG) [NovoLOG (formulary)] 5 unit SQ AC-TID 30 Days #3 vial 08/12/19 [Rx] Isosorbide Mononitrate ER [Imdur] 30 mg PO DAILY 30 Days #30 tab.er.24h 08/12/19 [Rx] Lisinopril [Zestril] 5 mg PO DAILY 30 Days #30 tab 08/12/19 [Rx] Metoprolol Tartrate [Lopressor] 25 mg PO DAILY 30 Days #30 tab 08/12/19 [Rx] traZODone HCL [Desyrel] 200 mg PO HS 30 Days #30 tab 08/12/19 [Rx] Follow up Appointment(s)/Referral(s): Carlos Clark MD [STAFF PHYSICIAN] - 08/24/19 3:30 pm (Please keep previous follow up appointment. ) Patient Instructions/Handouts: How to Stop Smoking (DC), Heart Healthy Diet (DC), Coronary Intravascular Stent Placement (DC) Activity/Diet/Wound Care/Special Instructions: CARDIAC CATH 1. Support your puncture site by applying firm, steady pressure whenever you cough, laugh, sneeze or bear down to have a bowel movement (2-day restriction). 2. Watch for any excessive bruising, active bleeding, a firm knot forming under your skin, extreme tenderness and signs of infection (redness, swelling, fever). 3. Shower daily, do not soak puncture in a tub bath, jacuzzi, pool, [place] etc. for 1 week. This is to prevent risk of infection. 4. Drink plenty of fluids the day of and day after your procedure to flush contrast dye out of your kidneys. 5. Take all medications as directed. Never stop any new medication without your physicians OK. 6. No driving for 2 days after procedure. 7. 10- pound weight lifting restriction for 1 week. 8. Low sodium/low fat diet. 9. Activity limited until follow up appointment with your driver/merchandiser. In case of any problems, please call [facility] [place] @ [phone]. Activity Limited until follow-up Continue current medications Follow-up with primary care provider upon discharge Follow-up with Cardiology as discussed and scheduled Continue current diet Continue monitoring blood sugars before meals at bedtime and treat with sliding scale along with additional insulin as ordered Discharge Disposition: OTHER INSTITUTION NOT DEFINED
== END 2019-08-12 16:10 | DRG 247 ==
LOC: 3SCARD 15:57
PROVIDERS: ADMIT Hospitalist; ATTEND Hospitalist
PROC: B2111ZZ Fluoroscopy of Multiple Coronary Arteries using Low Osmolar Contrast (ICD-10-PCS; 2019-08-11)
PROC: 027034Z Dilation of Coronary Artery, One Artery with Drug-eluting Intraluminal Device, Percutaneous Approach (ICD-10-PCS; principal; 2019-08-11 13:30)
PROC: 4A023N7 Measurement of Cardiac Sampling and Pressure, Left Heart, Percutaneous Approach (ICD-10-PCS; 2019-08-11 13:30)
DX: I24.9 Acute ischemic heart disease, unspecified (principal); F33.9 Major depressive disorder, recurrent, unspecified; N17.9 Acute kidney failure, unspecified; E11.22 Type 2 diabetes mellitus with diabetic chronic kidney disease; E11.42 Type 2 diabetes mellitus with diabetic polyneuropathy; E11.65 Type 2 diabetes mellitus with hyperglycemia; F20.9 Schizophrenia, unspecified; N18.3 Chronic kidney disease, stage 3 (moderate); E03.9 Hypothyroidism, unspecified; E78.5 Hyperlipidemia, unspecified; F17.200 Nicotine dependence, unspecified, uncomplicated; G47.33 Obstructive sleep apnea (adult) (pediatric); I25.10 Atherosclerotic heart disease of native coronary artery without angina pectoris; I25.2 Old myocardial infarction; J44.9 Chronic obstructive pulmonary disease, unspecified; M79.7 Fibromyalgia; E86.0 Dehydration; M19.90 Unspecified osteoarthritis, unspecified site; I12.9 Hypertensive chronic kidney disease with stage 1 through stage 4 chronic kidney disease, or unspecified chronic kidney disease; R32 Unspecified urinary incontinence; Z59.0 Homelessness; Z91.14 Patient's other noncompliance with medication regimen; Z79.02 Long term (current) use of antithrombotics/antiplatelets; Z79.4 Long term (current) use of insulin; Z79.890 Hormone replacement therapy; Z79.899 Other long term (current) drug therapy; Z86.73 Personal history of transient ischemic attack (TIA), and cerebral infarction without residual deficits; Z99.3 Dependence on wheelchair; Z71.6 Tobacco abuse counseling; Z88.8 Allergy status to other drugs, medicaments and biological substances; Z83.3 Family history of diabetes mellitus
CPT/HCPCS: 80048; 83036; 84484; 85025; 85027; 93458; C1874